=== PATIENT | female | born 1940 | race Caucasian/White ===

== ENCOUNTER 2017-01-08 20:45 | Inpatient (IN) | payer MEDICARE, BC ==
[~2017-01-08] VITALS: Ht 149.9 cm; Wt 66.1 kg
[2017-01-08] VITALS (9 sets, daily range): BP systolic 99–138; BP diastolic 48–89; BMI 38.7
--- NOTE | 2017-01-08 20:30 | NUR ---
PT RECIEVED. ASSESSMENT COMPLETE PER FLOW SHEET. VSS. FAMILY AT BEDSIDE GIVEN UPDATE. [facility] PAGED PRECIOUS CLAIRE CALLED BACK. T ORDER RECIEVED WILL ADM. T CONSULTS FOR GI, RESPIRATORY, CARDIOLOGY, AND RENAL RECIEVED ALL PAGED AND NOTIFIED PER ORDER. NEEDS MET.
[2017-01-08] MEDS ORDERED: FOLIC ACID0.8 MG PO (22:13)
[2017-01-08] MEDS ORDERED: BIOTIN5 MG PO (22:18)
[2017-01-08] MEDS ORDERED: VITAMIN D2000 UNIT PO (22:18)
[2017-01-08] MEDS ORDERED: ZYLOPRIM100 MG PO (22:19)
[2017-01-08] MEDS ORDERED: ELIQUIS2.5 MG PO (22:19)
[2017-01-08] MEDS ORDERED: LASIX40 MG PO ×2 (22:24→22:25)
[2017-01-08] MEDS ORDERED: POTASSIUM99 M1 PO (22:27)
[2017-01-08] MEDS ORDERED: BIDIL TABLET1 TAB (22:28)
[2017-01-08] MEDS ORDERED: ISOSORBIDE DINI20 MG PO (22:29)
[2017-01-08] MEDS ORDERED: PROTONIX20 MG PO (22:30)
[2017-01-08] MEDS ORDERED: ZANAFLEX2 M1 PO (22:31)
[2017-01-08] MEDS ORDERED: CELEXA40 MG PO (22:32)
[2017-01-08] MEDS ORDERED: PEPCID40 MG PO (22:32)
[2017-01-08] MEDS ORDERED: ELAVIL25 MG PO (22:34)
[2017-01-08] MEDS ORDERED: ASPIRIN81 MG PO (22:35)
[2017-01-08] MEDS ORDERED: LIPITOR10 MG PO (22:36)
[2017-01-08] MEDS ORDERED: BACTRIM 400-801 TAB PO (22:41)
[2017-01-08] MEDS ORDERED: HYDROCODON-ACE1 EAC7 PO (22:42)
[2017-01-08] MEDS ORDERED: NORCO 7.5/325 T1 TA1 PO (22:43)
[2017-01-08] MEDS ORDERED: KLONOPIN0.5 MG PO (22:43)
[2017-01-08 23:02] LABS: BASOPHILS 0.1 % (0-2); EOSINOPHILS 1.6 % (0-7); HEMATOCRIT 33.7 % (36.0-48.0); HEMOGLOBIN 10.8 g/dL (12-16); IMMATURE GRANULOCYTES 0.3 % (0-5); LYMPHOCYTES 5.1 % (15-50); MCH 32.2 pg (26.0-34.0); MCV 100.6 fL (80.0-100.0); MEAN PLATELET VOLUME 9.9 fL (7.4-10.4); MONOCYTES 4.1 % (2-11); NEUTROPHILS 88.8 % (40-80); PLATELET COUNT 112 10x3/uL (130-400); RBC 3.35 10x6/uL (4.00-5.40); RDW 17.2 % (11.5-14.5); WBC 7.1 10x3/uL (4.8-10.8)
[2017-01-08 23:41] LABS: ALKALINE PHOSPHATASE 80 U/L (46-116); ALT (SGPT) 587 U/L (10-68); BILIRUBIN - DIRECT 0.31 mg/dL (0.00-0.30); BILIRUBIN - INDIRECT 0.39 mg/dL (0.00-1.00); CALC OSMOLALITY 288 mosm/kg (275-300); CALCIUM 8.3 mg/dL (8.5-10.1); CARBON DIOXIDE 25.2 mmol/L (21.0-32.0); CHLORIDE - SERUM 103 mmol/L (98-107); CKMB 5.8 U/L (0.0-3.6); CREATINE KINASE 132 UL (21-215); CREATININE - SERUM 1.7 mg/dL (0.6-1.3); GLUCOSE 88 mg/dL (74-106); MAGNESIUM - SERUM 2.2 mg/dL (1.8-2.4); PHOSPHOROUS 3.6 mg/dL (2.5-4.9); POTASSIUM - SERUM 3.8 mmol/L (3.5-5.1); PROTEIN - SERUM 6.3 g/dL (6.4-8.2); SODIUM 141 mmol/L (136-145); UREA NITROGEN 37 mg/dL (7-18); eGFR NON AFRICAN AMERICAN 31 mL/min (90-120)
[2017-01-08 23:48] LABS: TROPONIN-I 0.077 ng/mL (0.000-0.060)
[2017-01-09] VITALS (24 sets, daily range): BP systolic 97–146; BP diastolic 52–110
--- NOTE | 2017-01-09 01:21 | NUR ---
NO NEW CHANGES. PT ANXIOUS CONFUSED REORIENTED REPOSISITION ON L SIDE FOR COMFORT DENIES FURTHER NEEDS. WILL CONTINUE TO MONITOR.
--- NOTE | 2017-01-09 03:29 | NUR ---
REASSESSMENT COMPLETE PER FLOW SHEET. VSS. NO NEW CHANGES. PT CONFUSED REORIENTED DENIES PAIN OR NEEDS. WILL CONTINUE TO MONITOR
[2017-01-09 06:07] LABS: BASOPHILS 0.1 % (0-2); EOSINOPHILS 1.6 % (0-7); HEMATOCRIT 31.9 % (36.0-48.0); HEMOGLOBIN 10.2 g/dL (12-16); IMMATURE GRANULOCYTES 0.3 % (0-5); LYMPHOCYTES 6.3 % (15-50); MCH 32.2 pg (26.0-34.0); MCV 100.6 fL (80.0-100.0); MEAN PLATELET VOLUME 10.3 fL (7.4-10.4); MONOCYTES 5.5 % (2-11); NEUTROPHILS 86.2 % (40-80); PLATELET COUNT 113 10x3/uL (130-400); RBC 3.17 10x6/uL (4.00-5.40); WBC 7.3 10x3/uL (4.8-10.8)
[2017-01-09 06:37] LABS: ANION GAP 14.9 mmol/L (8-16); BILIRUBIN - TOTAL 0.78 mg/dL (0.2-1.3); CALCIUM 7.8 mg/dL (8.5-10.1); CARBON DIOXIDE 26.6 mmol/L (21.0-32.0); CREATININE - SERUM 1.5 mg/dL (0.6-1.3); PHOSPHOROUS 3.4 mg/dL (2.5-4.9); POTASSIUM - SERUM 3.5 mmol/L (3.5-5.1); PROTEIN - SERUM 5.5 g/dL (6.4-8.2)
--- NOTE | 2017-01-09 07:00 | NUR ---
RECIEVED REPORT. CONT PLAN OF CARE. O2 VIA NC AT 6L WITH NO SOB NOTED. OT SAT 92% RESIDENT CONFUSED AND ORIENTED TO PERSON ONLY. IV TO LEFT ARM WITH ARM BOARD AND GAUZING. FC WITH CLEAR YELLOW URINE NOTED. BRUISING TO BUE AND BLE. ABD DISTENDED WITH HYPOACTIVE BOWEL SOUNDS X4. ASSESSMENT COMPLETED PER FLOW SHEET.
--- NOTE | 2017-01-09 07:10 | NUR ---
ORAL TEMP NOT READING. AXILARY TEMP READ 94.0. BEAR HUGGER APPLIED UNDER SHEET AND BLANKET AND ROOM TEMP INCREASED. FAMILY ARRIVED SHORTLY AFTER AND AWARE OF LOW TEMERATURE.
--- NOTE | 2017-01-09 09:00 | NUR ---
FAMILY AT BEDSIDE, JAGRUTI WATT TAUTH AND RODO SPOKE WITH FAMILY RE: POC, NO OTHER NEEDS A THIS TIME
[2017-01-09 09:11] LABS: AMYLASE - SERUM 34 U/L (25-115); LIPASE 87 U/L (73-393)
[2017-01-09 09:20] LABS: INR 1.65 (0.85-1.17); PROTIME 19.4 SECONDS (11.6-15.0)
--- NOTE | 2017-01-09 09:30 | NUR ---
AM MEDS GIVEN WITHOUT DIFFICULTY
--- NOTE | 2017-01-09 10:00 | NUR ---
ORAL TEMP READ 98.0. BEAR HUGGER TURNED OFF.
[2017-01-09 10:28] LABS: APPEARANCE HAZY (CLEAR); BACTERIA FEW /hpf (NONE SEEN); BILIRUBIN NEGATIVE (NEGATIVE); COLOR YELLOW (YELLOW); EPITHELIAL CELLS 0-5 /hpf (0-5); GLUCOSE NEGATIVE (NEGATIVE); KETONE NEGATIVE (NEGATIVE); LEUKOCYTE ESTERASE TRACE (NEGATIVE); MUCUS <1+ /lpf (NONE SEEN); NITRITE NEGATIVE (NEGATIVE); PROTEIN NEGATIVE (NEGATIVE); RED CELLS - URINE >50 /hpf (0-5); SPECIFIC GRAVITY 1.015 (1.005-1.020); UROBILINOGEN NORMAL (NORMAL); WHITE CELLS - URINE 0-5 /hpf (0-5)
[2017-01-09 10:33] LABS: CREATININE - URINE 45.8 mg/dL (30-125); POTASSIUM - URINE 38.2 MMOL/L (12.0-62.0)
--- NOTE | 2017-01-09 10:50 | NUR ---
ECHO COMPLETED AT BEDSIDE
--- NOTE | 2017-01-09 11:00 | NUR ---
PT STILL IN BED. NO OBVIOUS SIGNS AND SYMPTOMS OF DISTRESS/DISCOMFORT. LESS AGITATED. PREPARING TO GO TO CT.
--- NOTE | 2017-01-09 11:14 | NUR ---
TO RADIOLOGY FOR PENDING CT SCAN, AWAKE AND CONFUSED,
--- NOTE | 2017-01-09 13:00 | NUR ---
PT RESTLESS IN BED. CONFUSION NOTED. PT FOUND WITH LEGS OVER SIDE OF THE BED. REPOSITIONED AND MOVED TOWARDS THE HEAD OF THE BED.
--- NOTE | 2017-01-09 15:49 | CN ---
PATIENT NAME:ETHAN BUSH MEDICAL RECORD: [id number] : 40 LOCATION:[facility].2310 ADMIT DATE: 01/08/17 ACCOUNT: [id number] CONSULTING PHYSICIAN: ALEXANDER JONES MD REFERRING PHYSICIAN: FAITH LOPEZ MD DATE OF CONSULTATION: 01/09/2017 Cardiology Consultation DIAGNOSES: 1. Elevated troponin. 2. Atrial fibrillation, chronic. 3. Coronary artery disease, status post coronary bypass graft surgery 1-vessel, September of 2016. 4. Aortic valve replacement, September 29. 5. Mental status changes. 6. Recurrent pneumonia. 7. Esnna-vl-estklhn renal insufficiency. 8. Hyperlipidemia. 9. Hypertension. HISTORY OF PRESENT ILLNESS: Mrs. Bush presents primarily with mental status changes. She had a fall 2 days ago. She went to the Emergency Room. There was nothing broken. She was sent out to the Emergency Room. Her mental status decreased since then. She was admitted yesterday with significant mental status changes, this is improved overnight, most likely this is improved secondary to hydration. Most likely was decreased mental status due to dehydration due to decreased oral intake after her fall secondary to pain. She does have pain throughout her chest area and her abdominal area and the back of her head after her fall. Her troponin is mildly elevated, which can also go with the renal insufficiency and the dehydration. Her troponin is trending downward. Her EKG is with no acute ST-T abnormalities. She does have a history of coronary bypass graft surgery in conjunction with angina and an aortic valve replacement in September. She is not having any cardiac chest pain, only musculoskeletal chest pain. PHYSICAL EXAMINATION: GENERAL APPEARANCE: Well-nourished, well-developed, appears stated age. Level of distress, comfortable. PSYCHIATRIC: Mental status, alert, normal affect. Orientation, oriented to time, place and person. EYES: Lids and conjunctiva, noninjected. No discharge, no pallor. ENT: Lips, teeth, gums, normal dentition. Oropharynx, no cyanosis, no pallor. NECK: Carotid arteries, bilateral normal upstroke, no bruits, no thrills. JUGULAR VEINS: No jugular venous pressure or distention. CERVICAL LYMPH NODES: Nontender, nonenlarged. THYROID: Not enlarged. Nontender. No nodules. LUNGS: Respiratory effort, unlabored. CHEST: Normal curvature. No thoracic deformity. No chest wall tenderness. Percussion, resonant. Auscultation, clear. No wheezes, no rales, no rhonchi. CARDIOVASCULAR: Precordial exam, nondisplaced. No heaves or pericardial thrills. Rate and rhythm, regular. Heart sounds, normal S1, normal S2. No S3, no gallop, no rub. Systolic murmur, not heard. Diastolic murmur, not heard. EXTREMITIES: No cyanosis, no edema. Peripheral pulses, full and equal in all extremities, except as noted. No bruits appreciated. CONSULT REPORT [id number] ETHAN BUSH ABDOMEN: Soft, nondistended. Normal aorta. No bruit. Nontender. No masses. Liver, nontender, no hepatomegaly. Spleen, nontender, no splenomegaly. MUSCULOSKELETAL: No joint tenderness. No joint swelling. No erythema. NEUROLOGICAL: Normal gait, normal strength, normal tone. SKIN: Warm and dry. REVIEW OF SYSTEMS: The patient reports easy bruising but reports no swollen glands. The patient reports no fever, no night sweats, no significant weight gain, no significant weight loss. No significant exercise tolerance. The patient reports no dry eyes, no irritation, no vision change. Patient reports no difficulty hearing and no ear pain. Patient reports no frequent nose bleeds or nose and sinus problems. Patient reports on arm pain on exertion. No shortness of breath while lying down. No history of heart murmur. Patient reports no cough, no wheezing or coughing up blood. Patient reports no abdominal pain, no vomiting. Normal appetite. No diarrhea and not vomiting blood. No nausea and no constipation. Patient reports no incontinence. No difficulty urinating. No hematuria. No increased frequency. Patient reports no muscle aches. No weakness, no arthralgias, no back pain. No swelling of the extremities. Patient reports no abnormal mole, no jaundice, no rashes. Reports no loss of consciousness. No weakness and no numbness. No seizures, dizziness, or headaches. The patient reports no depression, no sleep disturbance, feeling safe in a relationship and no alcohol abuse. Patient reports on fatigue. Reports no runny nose or sinus pressure. No itching, no hives, and no frequent sneezing. OVERALL IMPRESSION: At this time, I do not think that this is an acute ischemic cardiac event. I think that the troponin is elevated secondary to the dehydration and renal insufficiency. We will get an echocardiogram to assess her overall LV function, but most likely cardiac catheterization or invasive workup will not be needed. TRANSINT:[id number] Voice Confirmation ID: [id number] DOCUMENT ID: [id number] ALEXANDER JONES MD at 1549 CC: [id number] DICTATION DATE: 01/09/17 0931 SAWYER HELPER: 01/09/17 1024 ADM IN [place] [id number] [place] [id number]
--- NOTE | 2017-01-09 17:26 | NUR ---
IN BED RESTLESS WITH LEGS OVER THE SIDE OF THE BED. CONFUSION NOTED. REPOSITIONED IN BED.
--- NOTE | 2017-01-09 19:30 | NUR ---
PT MOVED UP IN BED. REDRESSED IV SITE. IV ON R UPPER ARM, PATENT. FRESH LINEN CHANGE. SHIFT ASSESSMENT COMPLETED. PT IS STILL CONFUSED AND HALLUCINATING. REORIENTED PT. OXIMIZER ON AT 12 L/MIN. S1S2 AUDIBLE. CRACKLES HEARD IN ALL LOBES OF THE LUNGS. BS ACTIVE X4. RAO, URINE DARK VIRAJ COLOR AND CONCENTRATED. SCD'S REMOVED AND SKIN ASSESSED, WNL. REAPPLIED SCD'S. PROVIDED PT WITH SLIPPER SOCKS. CALL LIGHT IN REACH AND PT IS IN SIGHT OF THE NURSE'S STATION. WILL CONTINUE TO MONITOR.
--- NOTE | 2017-01-09 21:15 | NUR ---
TALKED TO PT'S DAUGHTER ON THE PHONE. INFORMED HER OF HER MOTHER'S CONFUSION. PT IN BED, MOVED HER UP FOR COMFORT AND REPOSITIONED HER PILLOWS. CALL LIGHT IN REACH. PT IN VIEW OF THE NURSE'S STATION.
--- NOTE | 2017-01-09 23:30 | NUR ---
REPOSITIONED PT FOR COMFORT. REORIENTED HER, BUT SHE IS STILL VERY CONFUSED AT THIS TIME. PT IN VIEW OF THE NURSE'S STATION. CALL LIGHT IN REACH. BED IN LOWEST POSITION. WILL CONTINUE TO MONITOR.
[2017-01-10] VITALS (23 sets, daily range): BP systolic 98–130; BP diastolic 59–100; Ht 149.9 cm; Wt 66.1 kg
--- NOTE | 2017-01-10 01:14 | NUR ---
REPOSITIONED ON HER L SIDE. PT SLEEPING. OXIMIZER IN AT 12 L. WILL CONTINUE TO MONITOR.
--- NOTE | 2017-01-10 02:50 | NUR ---
PT REPOSITONED FOR COMFORT ON HER R SIDE. REORIENTED HER AND SHE SAID SHE WANTED TO SLEEP. MONITORED HER FOR A FEW MINUTES TO THE SIDE AND SHE DRIFTED OFF TO SLEEP. BED IN LOWEST POSITION. CALL LIGHT IN REACH. WILL CONTINUE TO MONITOR HER FROM THE NURSE'S STATION.
[2017-01-10 04:17] LABS: BASOPHILS 0.2 % (0-2); EOSINOPHILS 0 % (0-7); HEMATOCRIT 31.3 % (36.0-48.0); HEMOGLOBIN 9.8 g/dL (12-16); IMMATURE GRANULOCYTES 0.3 % (0-5); LYMPHOCYTES 6.1 % (15-50); MCH 31.5 pg (26.0-34.0); MCHC 31.3 g/dL (31.0-37.0); MCV 100.6 fL (80.0-100.0); MEAN PLATELET VOLUME 10.6 fL (7.4-10.4); MONOCYTES 2.6 % (2-11); NEUTROPHILS 90.8 % (40-80); PLATELET COUNT 114 10x3/uL (130-400); RBC 3.11 10x6/uL (4.00-5.40); RDW 16.8 % (11.5-14.5); WBC 6.4 10x3/uL (4.8-10.8)
[2017-01-10 04:42] LABS: ALBUMIN 2.9 g/dL (3.4-5.0); ANION GAP 14.7 mmol/L (8-16); BILIRUBIN - DIRECT 0.38 mg/dL (0.00-0.30); BILIRUBIN - INDIRECT 0.72 mg/dL (0.00-1.00); BILIRUBIN - TOTAL 1.1 mg/dL (0.2-1.3); CALCIUM 8.3 mg/dL (8.5-10.1); CARBON DIOXIDE 25.7 mmol/L (21.0-32.0); CREATININE - SERUM 1.4 mg/dL (0.6-1.3); POTASSIUM - SERUM 3.4 mmol/L (3.5-5.1); PROTEIN - SERUM 6.2 g/dL (6.4-8.2)
[2017-01-10 04:48] LABS: % SATURATION 11 % (15-55); IRON 28 ug/dl (35-150); TOTAL IRON BIND CAPACITY 234 ug/dl (260-445); UNSAT IRON BIND CAPACITY 206 ug/dl (150-375)
--- NOTE | 2017-01-10 05:15 | NUR ---
PT RESTING PEACEFULLY. CALL LIGHT IN REACH. WILL CONTINUE TO MONITOR.
--- NOTE | 2017-01-10 07:16 | NUR ---
REPORT RECD PT CARE ASSUMED. PT LAYING IN BED, CONFUSED TO PERSON PLACE TIME AND SITUATION. PT HAS DIFFICULTY FOLLOWING COMMANDS. PT HAS OXIMIZER AT 12L. S1S2 NOTED, SR PER CM. RAO/SCDS IN PLACE. PPP. SEE SHIFT ASSESSMENT FOR FURTHER DETAILS. VSS.
--- NOTE | 2017-01-10 09:00 | NUR ---
PT FAMILY AT BEDSIDE FOR VISITATION. PT IS SITTING UP IN BED, FEEDING WITH ASSISTANCE FROM DAUGHTER. PT TOLERATING REG DIET WELL. PT IS NOW ORIENTED TO PERSON AND DATE. PT PROVIDED WITH UPDATE.
--- NOTE | 2017-01-10 10:00 | NUR ---
PT REPOSITIONED AND PULLED UP IN BED. PT RESTING COMFORTABLY AT THIS TIME, DENIES PAIN.
--- NOTE | 2017-01-10 11:31 | EC ---
PATIENT:ETHAN BUSH DATE OF SERVICE: 01/08/17 SEX: F MEDICAL RECORD: [id number] DATE OF : 40 LOCATION:[facility] AGE OF PATIENT: 76 ADMISSION DATE: 01/08/17 REFERRING PHYSICIAN: INTERPRETING PHYSICIAN: ALEXANDER NOE MD ECHOCARDIOGRAM REPORT ECHO CHARGES 4 ECHO COMPLETE CLINICAL DIAGNOSIS: ELEVATED TROPONIN/RECENT CABG/VALVE REPLACEMENT ECHOCARDIOGRAPHIC MEASUREMENTS (adult normal given) AC root (d.<3.7cm) 2.7 LV Septum d (<1.2 cm> 1.0 Valve Excursion 1.3 LV Septum (systole) 1.2 Left Atria (s.<4.0cm> 3.5 LVPW d(<1.2cm) 1.2 RV (d.<2.3cm) 4.1 LVPW (sytole) 1.4 LV diastole(<5.6CM) 4.0 MV E-F(>70mm/sec) LV systole 2.5 LVOT Diameter 1.8 MV exc.(>10mm) Est.ejection fraction (50-75%) Pericardial Effusion N DOPPLER: LVIT A 85.0 E 8.67 LA RVSP 51 LVOT 108 AOP1/2T Asc. Ao 147 RVOT 66 RA PA 137 AV Gradient Peak 8.69 AV Mean 4.46 AV Area 1.5 MV Gradient Peak 7.55 MV Mean 2.32 MV Area COMMENTS: Construction Driller: Juan F EPPS Machinist Automotive:Madonna Noe TAPE# PACS DATE OF SERVICE: 01/09/2017 Echocardiogram FINDINGS: 1. Left ventricular chamber size is within normal limits. Left ventricular systolic function is normal. Overall ejection fraction estimated at 60%. 2. Left atrium is within normal limits at 3.5 cm. Right atrium and right ventricular chamber sizes are mildly dilated. 3. Valvular structures: Aortic valve is replaced with a tissue prosthesis with ECHOCARDIOGRAM REPORT [id number] ETHAN BUSH normal structure and function in this position. The remaining valvular structures have normal structure and motion. 4. Doppler interrogation reveals mild mitral regurgitation, moderate tricuspid regurgitation, no other valvular insufficiency or stenosis. Pulmonary systolic pressure is elevated estimated at 51 mmHg. 5. No evidence of pericardial effusion or left ventricular thrombus. TRANSINT:[id number] Voice Confirmation ID: [id number] DOCUMENT ID: [id number] ALEXANDER NOE MD at 1131 CC: [id number] DICTATION DATE: 01/09/17 1238 TELESCOPE REPAIRER: 01/09/17 1617 ADM IN [place] [id number] [place] [address]
--- NOTE | 2017-01-10 11:33 | CN ---
PATIENT NAME:ETHAN BUSH MEDICAL RECORD: [id number] : 40 LOCATION:[id number] ADMIT DATE: 01/08/17 ACCOUNT: [id number] CONSULTING PHYSICIAN: SARAH DOBSON MD REFERRING PHYSICIAN: RADHA LOPEZ MD DATE OF CONSULTATION: 01/09/2017 Gastrointestinal Consultation REFERRING PHYSICIAN: Radha Lopez MD RAIL GRINDER: Dr. Kennedy. HISTORY OF PRESENT ILLNESS: The patient is a 76-year-old white female with history of cerebrovascular disease status post CVA, coronary artery disease and valvular heart disease status post PTCA with stent placement as well as reported CABG and recent valve replacement, who was basically admitted with marked confusion as well as renal insufficiency and acute MD and mildly elevated transaminases. I was asked to see the patient in this regard. Apparently, she has a remote history of peptic ulcer disease on chart review. She has no past history of any liver disease. However, on admission, her ALT was about 500 and AST was about 200. ____ the patient is very confused and cannot give any history. PAST MEDICAL HISTORY: As above. ALLERGIES: PENICILLIN, CODEINE AND ATIVAN. HOME MEDICATIONS: Include folic acid, vitamin D3, biotin, allopurinol, Eliquis, Lasix, potassium, isosorbide, Protonix, Zanaflex, Celexa, Pepcid, Elavil, aspirin, Lipitor, Bactrim, Dermott, clonazepam. FAMILY HISTORY: Negative for GI disease. SOCIAL HISTORY: The patient is a former smoker. She denies alcohol use. REVIEW OF SYSTEMS: Basically unobtainable. PHYSICAL EXAMINATION: GENERAL: Reveals an elderly, somewhat frail white female who is confused, but in no acute distress. VITAL SIGNS: Stable. She is afebrile. CHEST: Clear. HEART: Regular rate and rhythm. ABDOMEN: Soft and nontender. EXTREMITIES: No edema. LABORATORY DATA: Reveals a white count of 7000, hematocrit 31, MCV of 100, platelet count 113,000 with a left shift. Electrolytes normal. BUN 35, creatinine 1.5. Total bilirubin 0.8, AST 215, ALT 539, alkaline phosphatase 77. ProBNP is 10,700. Albumin is 3. Amylase and lipase are normal. TSH is a little high at 7. UA reveals 2+ rbc's, but otherwise negative. INR is 1.65. CT of the chest reveals emphysematous changes in both upper lobes. Renal ultrasound was basically negative for hydronephrosis. Chest x-ray reveals some CONSULT REPORT [id number] ETHAN BUSH interstitial edema. IMPRESSION: Mildly elevated transaminases in the setting of an acute myocardial infarction, recent cardiac surgery and confusion of unclear etiology, rule out shock liver, medications (Lipitor, Bactrim). I doubt underlying liver disease at this time. RECOMMENDATION: 1. Obviously, hold her Lipitor ____. 2. Hold her sulfa drug. 3. Check routine "liver lab" and obtain ultrasound of the liver and gallbladder. 4. Continue supportive care. TRANSINT:[id number] Voice Confirmation ID: [id number] DOCUMENT ID: [id number] SARAH DOBSON MD at 1133 CC: [id number] DICTATION DATE: 01/09/171903 CLEANER AND PRESSER: 01/10/17 0229 ADM IN [facility] [address] [place] [id number]
--- NOTE | 2017-01-10 11:42 | CN ---
PATIENT NAME:ETHAN BUSH MEDICAL RECORD: [id number] : 40 LOCATION:[facility].2310 ADMIT DATE: 01/08/17 ACCOUNT: [id number] CONSULTING PHYSICIAN: MYRIAM KOEHLER MD REFERRING PHYSICIAN: RADHA LOPEZ MD DATE OF CONSULTATION: 01/09/2017 CONSULT REQUESTING PHYSICIAN: Dr. Radha Lopez. REASON FOR CONSULTATION: Hoylx-mi-fntbsud hypoxic respiratory failure, mental status changes. HISTORY OF PRESENT ILLNESS: Ms. Bush is a 76-year-old female who has a history of chronic obstructive pulmonary disease, congestive heart failure. The patient has a CABG in September and since then she has had pneumonia times 2. Yesterday, the patient was very confused, very lethargic and the patient was brought into the ER. On evaluation, she was found that she is in pulmonary edema and she was hypoxic. She was put on 6 liters nasal cannula oxygen. Now, the history was mainly taken by talking to the patient's and reviewing her notes. REVIEW OF SYSTEMS: Mainly in the history of present illness. PAST MEDICAL HISTORY: 1. Chronic obstructive pulmonary disease. 2. Chronic hypoxic respiratory failure. 3. Congestive heart failure, possible systolic dysfunction. 4. CABG. 5. Pneumonia times 2 since September. 6. Gastroesophageal reflux disease. PAST SURGICAL HISTORY: The CABG in September 2016. She is also having a valve replacement at the same time. ALLERGIES: SHE IS ALLERGIC TO CODEINE, LORAZEPAM AND QUESTIONABLE PENICILLIN. PRESENT MEDICATIONS: Med[employer]ch was reviewed. PERSONAL AND SOCIAL HISTORY: The patient is . She lives with her . She is an ex-smoker. She is a nondrinker. FAMILY HISTORY: Noncontributory. PHYSICAL EXAMINATION: GENERAL: Now, the patient is lying comfortably in bed. She is not in acute distress. VITAL SIGNS: The blood pressure is 135/73, pulse is 71, respirations 22, temperature was 98.4 earlier her temperature was 94, SPO2 is 96% on 6 liters nasal cannula. HEENT: Conjunctivae are pink. Sclerae nonicteric. NECK: Supple. There is elevated JVD. CHEST: There are bilateral crackles. No wheezing. HEART: Rhythm regular, normal sound. Grade II/ systolic murmur. ABDOMEN: Abdomen is soft. Bowel sounds present. No hepatosplenomegaly. RECTAL: Deferred. CONSULT REPORT [id number] ETHAN BUSH EXTREMITIES: No cyanosis, no clubbing. There is no pedal edema. SKIN: The skin is warm, normal turgor. CENTRAL NERVOUS SYSTEM: The patient is awake and alert, but she is very confused. LABORATORY DATA: CBC: The WBC is 7.3, hemoglobin 10.2, hematocrit 31.9, the platelet count is 113. Chemistry: Sodium was 142, potassium 3.5, chloride 104, bicarbonate 26.6, BUN is 35, creatinine is 1.5 earlier it was 1.7. Calcium is 7.8, magnesium is 2, AST is 245, ALT is 587. Troponin is 0.07. IMAGING: Chest radiograph, there are bilateral increased interstitial marking consistent with pulmonary edema. IMPRESSION: 1. Immno-zr-hocjzhf hypoxic respiratory failure, which is multifactorial: A. Pulmonary edema. B. 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 2. Possible pneumonia consistent with hospital-acquired pneumonia. 3. Acute exacerbation of chronic obstructive pulmonary disease. 4. Congestive heart failure consistent with chronic systolic dysfunction. 5. Acute renal failure. 6. Acute mental status changes, possible metabolic encephalopathy and possible sepsis. 7. Elevated liver function tests. Possible hepatitis, possible secondary to liver congestion. 8. Hypothermia. RECOMMENDATION: 1. We will start her on Levaquin and cefepime to cover for Gram-negative lauro and hospital-acquired pneumonia. 2. Albuterol/ipratropium nebulizer. 3. Brovana and budesonide nebulizer. 4. Hep-Lock decrease IV fluid to KVO. 5. Lasix. 6. Check the CT scan of the chest. Check the proBNP. 7. Cardiac echo, Dr. Noe has already been consulted. 8. Follow up on the blood culture. 9. Check the TSH, check the ABG. Dr. Lopez, thank you for involving me in the care of Ms. Bush. The critical care time is 1 hour. TRANSINT:[id number] Voice Confirmation ID: [id number] DOCUMENT ID: [id number] MYRIAM KOEHLER MD at 1142 CC: RADHA LOPEZ MD [id number] DICTATION DATE: 01/09/17 1010 FRAME STRAIGHTENER: 01/09/17 1131 ADM IN [place] [id number] [place] [address]
--- NOTE | 2017-01-10 12:00 | NUR ---
PT SITTING UP IN BED EATING LUNCH, PT FAMILY AT BEDSIDE FOR VISITATION. VSS.
--- NOTE | 2017-01-10 14:57 | NUR ---
HAND OFF REPORT GIVEN TO HORACE HARRISON
--- NOTE | 2017-01-10 17:15 | NUR ---
DINNER TRAY TO BEDSIDE, ASSIST WITH SET UP AND EATING, BITES AND SIPS ONLY, TRAY FROM BEDSIDE, REPOSITIONED UP IN BED VOICES NO OTHER NEEDS AT THIS TIME
--- NOTE | 2017-01-10 18:00 | NUR ---
SOLUMEDRAL 40 MG IVP AND, CEFEPIME 1 GM IVPB, INITITATED PER OCT AND ORDERS, NO VISITORS AT THIS TIME
--- NOTE | 2017-01-10 19:28 | NUR ---
REPORT RECIEVED. ASSESSMENT COMPLET EPER FLOW SHEET. VSS. REFER FOR FINDINGS. RESTING COMFORTABLY. WILL CONTINUE TO MONITOR.
--- NOTE | 2017-01-10 20:18 | NUR ---
FAMILY CALLED GIVEN UPDATE. NO NEW CHANGES. WILL CONTINUE TO MONITOR.
--- NOTE | 2017-01-10 21:29 | NUR ---
FAMILY GIVEN UPDATE VIA T. NO NEW CHANGES. 2100 MEDS ADM WITHOUT DIFFICULTY. VSS. WILL CONTINUE TO MONITOR.
--- NOTE | 2017-01-10 23:28 | NUR ---
REASSESSMENT COMPLETE PER FLOW SHEET. NO NEW CHANGES. VSS. WILL CNTINUE TO MONITOR.
[2017-01-11] VITALS (14 sets, daily range): BP systolic 94–126; BP diastolic 54–85
--- NOTE | 2017-01-11 01:14 | NUR ---
PT SLEEPING COMFORTABLY .VSS. NO NEW CHANGES. WILL CONTINUE TO MONITOR.
--- NOTE | 2017-01-11 03:24 | NUR ---
REASSESSMENT COMPLETEP ER FLOW SHEET. VSS. NO NEW CHANGES. WILL CONTINUE TO MONITOR.
[2017-01-11 04:33] LABS: BASOPHILS 0 % (0-2); EOSINOPHILS 0.1 % (0-7); HEMATOCRIT 31.3 % (36.0-48.0); HEMOGLOBIN 9.8 g/dL (12-16); IMMATURE GRANULOCYTES 0.2 % (0-5); LYMPHOCYTES 6.3 % (15-50); MCH 31.5 pg (26.0-34.0); MCHC 31.3 g/dL (31.0-37.0); MCV 100.6 fL (80.0-100.0); MEAN PLATELET VOLUME 10.6 fL (7.4-10.4); NEUTROPHILS 90.4 % (40-80); RBC 3.11 10x6/uL (4.00-5.40)
[2017-01-11 04:34] LABS: PLATELET COUNT 137 10x3/uL (130-400); WBC 10.1 10x3/uL (4.8-10.8)
[2017-01-11 04:53] LABS: ALBUMIN 2.8 g/dL (3.4-5.0); ANION GAP 9.1 mmol/L (8-16); BILIRUBIN - TOTAL 1.26 mg/dL (0.2-1.3); CALCIUM 8.3 mg/dL (8.5-10.1); CARBON DIOXIDE 31.2 mmol/L (21.0-32.0); CREATININE - SERUM 1.5 mg/dL (0.6-1.3); MAGNESIUM - SERUM 1.9 mg/dL (1.8-2.4); POTASSIUM - SERUM 3.3 mmol/L (3.5-5.1); PROTEIN - SERUM 5.9 g/dL (6.4-8.2)
[2017-01-11 07:25] LABS: HEPATITIS C ANTIBODY 0.2 (0.0-0.9)
--- NOTE | 2017-01-11 09:39 | NUR ---
0800 AM ASSESMENT COMPLETE SEE FLOW SHEET FOR FINDINGS.. PT IS SLEEPING EARLY AND AROUSES WHEN BREAKFAST IS SERVED... WITHOUT C/O AT THIS DEDE.. 0900 FAMILY AT THE BEDSIDE AND UPDATE IS GIVEN. FAITH CRAIG FOR GI IN TO SEE PT AND SPOKE WITH PT AND FAMILY..
--- NOTE | 2017-01-11 09:47 | NUR ---
NUTRITION MONITORING & EVAL CHART REVIEWED. NURSING REPORTS PT WITH ~50% INTAKE BREAKFAST. WILL CONTINUE TO PROVIDE REG DIET, MONITOR PO INTAKE. RD FOLLOWING
[2017-01-11 10:20] LABS: ANA REFLEX - DIRECT Negative (Negative)
[2017-01-11 10:20] LABS: ALPHA FETOPROTEIN -(TUMOR MRK) 1.8 ng/mL (0.0-8.3); ANA REFLEX - DIRECT Negative (Negative)
--- NOTE | 2017-01-11 10:46 | NUR ---
PATIENT IS ON A 12 LITER OXYMIZER. PATIENT IS NOT ABLE TO CONVERSE AT THIS TIME DUE TO SOB. I HAVE NOT SEEN ANY FAMILY VISIT THAT I CAN INTERVIEW AT THIS TIME. CM TO FOLLOW.
--- NOTE | 2017-01-11 15:15 | NUR ---
1100 DR LOPEZ IN TO SEE PT...UPDATE IS GIVEN.. 1130 DR KOEHLER IN UNIT SPEAKING WITH DR LOPEZ RE PT.. 1145 OK FOR TRANSFER TO FLOOR.. 1200 FAMILY IN TO SEE PT .. UPDATE GIVEN RE TRANSFER ORDERS.. FAMILY BROUGHT IN PT LUNCH FROM OUTSIDE .. TODAY IS PT BIRTHDAY 1300 COMLETE BATH AND LINEN CHANGE DONE WITH [facility] 1400 PT IS SLEEPING AT THIS ITME.. REPORT CALLED TO FLOOR ROOM 2112..
--- NOTE | 2017-01-11 15:16 | NUR ---
Is the patient Alert and Oriented? Yes 0 * How many steps to enter\exit or inside your home? 2/RAIL 0 * PCP DR. ZEKE MERRILL IN [place] 0 * Pharmacy [facility] IN [facility] 0 * Preadmission Environment Home with Family 0 * ADLs Independent 0 * Equipment Bedside Commode Nebulizer Oxygen Rolling Walker 0 * Other Equipment PATIENT O2 AND NEBULIZER PROVIDED BY [facility] IN [place], [place] 0 * List name and contact numbers for known caregivers / representatives who currently or will assist patient after discharge: SPOUSE ANTONINO [phone] 0 * Community resources currently utilized None 0 * Additional services required to return to the preadmission environment? No 0 * Can the patient safely return to the preadmission environment? Yes 0 * Has this patient been hospitalized within the prior 30 days at any hospital? No PATIENT IS AWAKE AND ALERT. SHE STATES SHE LIVES AT HOME WITH HE , ANTONINO. HE OR HER DAUGHTER, TRUDY, WILL BE AVAILABLE TO DRIVE HER HOME AT DISCHARGE. PATIENT STATES HER PCP IS DR. ZEKE MERRILL IN [place]. SHE GETS HER MEDS FROM [facility] IN [place]. PATIENT STATES SHE IS ON O2 24-7 AND HAS A NEBULIZER FOR BREATHING TREATMENTS PROVIDED BY [facility] IN [place]. PATIENT STATES SHE HAD HOME HEALTH IN THE PAST FROM [facility]. PATIENT STATES THERE ARE 2 STEPS TO ENTER HER HOME WITH A RAIL. PATIENT STATES SHE WAS INDEPENDENT IN HER ADL'S PRIOR TO COMING TO THE [facility]. PATIENT MAY BENEFIT FROM HOME HEALTH AT DISCHARGE. CM TO FOLLOW.
--- NOTE | 2017-01-11 16:54 | NUR ---
RECIVED TO ROOM FROM ICU. PER BED
--- NOTE | 2017-01-11 17:54 | NUR ---
WITHOUT CHANGES OR DISTRESS NOTED AT THIS TIME. DENIES NEEDS.
--- NOTE | 2017-01-11 20:21 | NUR ---
PT AWAKE, ALERT, ORIENTED, LYING IN BED, OXYMIZER ON, REQUESTING PAIN MEDICATION FOR CHRONIC BACK PAIN. PT CANNOT RECALL EXACTLY WHAT IT IS. PTS DAUGHTER CALLED TO GET REPORT ON PTS CONDITION SINCE BEING TRANSFERRED FROM ICU, AND ALSO STATED THAT PT SUFFERS FROM CHRONIC BACK PAIN AND TAKES PRN NORCO 5-325 AT HOME. I SPOKE WITH PRECIOUS CLAIRE, HOUSE SUPERINTENDENT FOR [employer]. SHE STATED THAT DUE TO PTS INCREASED LFT'S, PT IS UNABLE TO RECEIVE ANY KIND OF TYLENOL OR IBUPROFEN AT THIS TIME, BUT CAN HAVE MELATONIN 3MG PRN HS. WILL CONTINUE TO MONITOR PT CLOSELY. BED LOW, CALL LIGHT IN REACH, SIDE RAILS X 2, HOB 25 DEGREES.
--- NOTE | 2017-01-11 22:49 | NUR ---
DURING PTS 20:00 V/S, PT DEMONSTRATED AN O2 SAT OF 78-80% ON 4LPM OXYMIZER. PT WAS REPOSITIONED, ASKED TO COUGH, DEEP BREATH, WITHOUT ANY CHANGE IN O2. PTS HANDS ARE COLD, SO THEY WERE WARMED BY [employer]ARDEN BEFORE RECHECKING ANOTHER O2 SAT. WITHOUT ANY IMPROVEMENT, RT WAS CALLED, NABOR CAME, AND INCREASED PTS O2 TO 11LPM STILL VIA OXYMIZER. PT REMAINED IN NO ACUTE DISTRESS. CONTINUE TO MONITOR CLOSELY. BED LOW, CALL LIGHT IN REACH, SIDE RAILS X 2, HOB 20 DEGREES.
[2017-01-12] VITALS: BP 112/54
--- NOTE | 2017-01-12 02:31 | NUR ---
PT LYING IN BED, EYES CLOSED, RESPIRATIONS EVEN AND UNLABORED. PT EASILY ROUSABLE TO VERBAL STIMULI. PT DENIES ANY NEEDS. CONTINUE TO MONITOR CLOSELY. BED LOW, CALL LIGHT IN REACH, SIDE RAILS X 2, HOB 15 DEGREES.
[2017-01-12 04:00] VITALS: BP 113/59
[2017-01-12 04:45] LABS: BASOPHILS 0.1 % (0-2); EOSINOPHILS 0 % (0-7); HEMATOCRIT 31.2 % (36.0-48.0); HEMOGLOBIN 9.8 g/dL (12-16); IMMATURE GRANULOCYTES 0.9 % (0-5); MCH 31.5 pg (26.0-34.0); MCHC 31.4 g/dL (31.0-37.0); MCV 100.3 fL (80.0-100.0); MEAN PLATELET VOLUME 10.4 fL (7.4-10.4); MONOCYTES 2.1 % (2-11); NEUTROPHILS 89.9 % (40-80); PLATELET COUNT 130 10x3/uL (130-400); RBC 3.11 10x6/uL (4.00-5.40); RDW 17.5 % (11.5-14.5)
[2017-01-12 04:55] LABS: ALBUMIN 2.8 g/dL (3.4-5.0); BILIRUBIN - TOTAL 1.3 mg/dL (0.2-1.3); CALCIUM 8.8 mg/dL (8.5-10.1); CARBON DIOXIDE 30.3 mmol/L (21.0-32.0); CREATININE - SERUM 1.5 mg/dL (0.6-1.3); MAGNESIUM - SERUM 1.9 mg/dL (1.8-2.4); PHOSPHOROUS 2.8 mg/dL (2.5-4.9); PROTEIN - SERUM 5.9 g/dL (6.4-8.2)
[2017-01-12 04:56] LABS: ANION GAP 10.9 mmol/L (8-16); POTASSIUM - SERUM 4.2 mmol/L (3.5-5.1)
--- NOTE | 2017-01-12 07:40 | NUR ---
ASSESSMENT DONE. DENIES NEEDS.
[2017-01-12 07:56] VITALS: BP 112/54
--- NOTE | 2017-01-12 09:25 | NUR ---
RESP UL ON OXIMIZER. REPOSITIONED IN BED FOR COMFORT. WILL CONT. PLAN OF CARE.
[2017-01-12 12:44] VITALS: BP 102/42
--- NOTE | 2017-01-12 13:04 | NUR ---
Nutrition follow-up: RDN visited with pt during meal rounds. RDN helped pt fill out todays menus and provided pt with extra juice and chocolate Ensure. Diet: Regular as tolerated PO intake ~65% average of last 5 meals Wt: 130# Pt with fair to good po intake at this time RDN following.
[2017-01-12 14:21] LABS: SMOOTH MUSCLE ABS (ACTIN) 10 Units (0-19)
[2017-01-12 16:43] VITALS: BP 110/47
--- NOTE | 2017-01-12 16:47 | NUR ---
WITHOUT CHAGES OR DISTRESS NOTED AT THIS TIME. DENIES NEEDS.
[2017-01-12 19:00] VITALS: BP 105/46
--- NOTE | 2017-01-12 20:30 | NUR ---
PT AWAKE, ALERT, ORIENTED, DENIES ANY NEEDS. CONTINUE TO MONITOR CLOSELY. BED LOW, CALL LIGHT IN REACH, SIDE RAILS X 2, HOB 15 DEGREES.
[2017-01-13 00:08] VITALS: BP 110/56
--- NOTE | 2017-01-13 01:25 | NUR ---
PT AWAKE, ALERT, ORIENTED, DENIED ANY NEEDS, JUST WISHING SHE COULD SLEEP. CONTINUE TO MONITOR CLOSELY. BED LOW, CALL LIGHT IN REACH, SIDE RAILS X 2, HOB 10 DEGREES.
[2017-01-13 04:00] VITALS: BP 104/54
[2017-01-13 05:37] LABS: BASOPHILS 0.2 % (0-2); EOSINOPHILS 0.4 % (0-7); HEMOGLOBIN 11.1 g/dL (12-16); IMMATURE GRANULOCYTES 1.7 % (0-5); LYMPHOCYTES 9.7 % (15-50); MCH 33.2 pg (26.0-34.0); MCHC 32.6 g/dL (31.0-37.0); MCV 101.8 fL (80.0-100.0); MEAN PLATELET VOLUME 10.6 fL (7.4-10.4); MONOCYTES 2.9 % (2-11); NEUTROPHILS 85.1 % (40-80); PLATELET COUNT 141 10x3/uL (130-400); RBC 3.34 10x6/uL (4.00-5.40); RDW 17.4 % (11.5-14.5); WBC 10.6 10x3/uL (4.8-10.8)
[2017-01-13 06:06] LABS: ALBUMIN 2.8 g/dL (3.4-5.0); ANION GAP 12.9 mmol/L (8-16); BILIRUBIN - TOTAL 1.28 mg/dL (0.2-1.3); CARBON DIOXIDE 31.6 mmol/L (21.0-32.0); CREATININE - SERUM 1.5 mg/dL (0.6-1.3); MAGNESIUM - SERUM 1.7 mg/dL (1.8-2.4); POTASSIUM - SERUM 4.5 mmol/L (3.5-5.1)
--- NOTE | 2017-01-13 07:15 | NUR ---
RECEIVED REPORT. ASSUMED CARE OF PATIENT. CALL LIGHT WITHIN REACH. PATIENT REPORTS VOMITING X 1 LAST NIGHT AND STILL HAVE SLIGHT NAUSEA THIS AM. CALL LIGHT WITHIN REACH. DENIES NEEDS. NO DISTRESS.
[2017-01-13 08:59] VITALS: BP 123/57
--- NOTE | 2017-01-13 11:44 | NUR ---
iv access dcd to rla with 22 ga iv cath intact resited to lac with 22 ga iv cath x1 stick using aseptic technique pt tolerated well
[2017-01-13 12:40] VITALS: BP 120/54
[2017-01-13 16:24] VITALS: BP 123/59
--- NOTE | 2017-01-13 16:52 | NUR ---
RESTING IN BED WITH EYES OPEN. CONSUMING PM MEAL AT THIS TIME. CALL LIGHT WITHIN REACH. NO DISTRESS.
[2017-01-13 20:00] VITALS: BP 128/71
--- NOTE | 2017-01-13 20:12 | NUR ---
INITIAL ROUNDS COMPLETEDA T 191 HRSW. PT DENIED ANY DISCOMFORT. ASSESSMETN VIDYA T 1934 HRS. VSS. O2 12L OXIMIZER. IV TO LAC SL. LUNGS DIMINISHED IN BASES BILAT. ABD DISTENED WITH ACTIVE BS NOTED. RAO DRAINING YELLOW URINE. NUMEROUS BRUISES NOTED TO BILAT ARMS AND LEGS. BED ALRM ON. ENCOURAGED PT TO SPLINT WIT H PILLOW AND TAKE DEVERAL DEEP BREATHES. WILL CONTINUE TO MONITOR. SR UP X2, CALL LIGHT WITHIN REACH.
--- NOTE | 2017-01-13 22:07 | NUR ---
PM MEDS GIVNE PER ORDERS. PT CURRENTLY RESTING WITH EYES CLOSED. RESP EVEN AND REGULAR. SR UP X2, CALL LIGHT WITHIN REACH.
--- NOTE | 2017-01-14 01:07 | NUR ---
PT RESTING WITH EYES CLOSED. RESP EVEN AND REGULAR. SR UP X2, CALL LIGHT WITHIN REACH AND BED ALARM ON.
--- NOTE | 2017-01-14 02:18 | NUR ---
PT AWAKE; DENIES ANY DISCOMFORT. WILL CONTINUE TO MONITOR. SR UP X2, CALL LIGHT WITHIN REACH, AND BED ALARM ON.
[2017-01-14 04:00] VITALS: BP 122/61
--- NOTE | 2017-01-14 04:23 | NUR ---
PT AWAWK; DENIES ANY DISCOMFORT. WILL CONTINUE TO MONITOR. SR UP X2, CALL LIGHT WITHIN REACH AND BED ALARM ON.
[2017-01-14 05:02] LABS: BASOPHILS 0.1 % (0-2); EOSINOPHILS 0.1 % (0-7); HEMATOCRIT 31.1 % (36.0-48.0); HEMOGLOBIN 9.8 g/dL (12-16); IMMATURE GRANULOCYTES 1.3 % (0-5); LYMPHOCYTES 8.9 % (15-50); MCH 31.8 pg (26.0-34.0); MCHC 31.5 g/dL (31.0-37.0); MEAN PLATELET VOLUME 10.3 fL (7.4-10.4); MONOCYTES 2.7 % (2-11); NEUTROPHILS 86.9 % (40-80); PLATELET COUNT 118 10x3/uL (130-400); RBC 3.08 10x6/uL (4.00-5.40); RDW 17.2 % (11.5-14.5); WBC 8.4 10x3/uL (4.8-10.8)
[2017-01-14 05:30] LABS: ALBUMIN 2.5 g/dL (3.4-5.0); BILIRUBIN - TOTAL 1.1 mg/dL (0.2-1.3); CALCIUM 8.4 mg/dL (8.5-10.1); CARBON DIOXIDE 34.4 mmol/L (21.0-32.0); CREATININE - SERUM 1.3 mg/dL (0.6-1.3); MAGNESIUM - SERUM 1.8 mg/dL (1.8-2.4); POTASSIUM - SERUM 4.4 mmol/L (3.5-5.1); PROTEIN - SERUM 5.5 g/dL (6.4-8.2)
--- NOTE | 2017-01-14 06:14 | NUR ---
VSS THROUGHOUT NIGHT. PT DENIED ANY DISCOMFORT. DULCOLAX SUPP PLACED IN RECTUM FOR C/O CONSTIPATION. NEEDS MET; WILL CONTINUE TO MONITOR.
--- NOTE | 2017-01-14 07:15 | NUR ---
RECEIVED REPORT. ASSUMED CARE OF PATIENT. LYING IN BED WITH EYES OPEN. CALL LIGHT WITHIN REACH. DENIES NEEDS AT THIS TIME. NO DISTRESS. STATES SHE SLEPT WELL LAST NIGHT. NO DISTRESS.
[2017-01-14 08:46] VITALS: BP 115/58
--- NOTE | 2017-01-14 10:22 | NUR ---
MEDICATED FOR PAIN AT THIS TIME. NO DISTRESS.
[2017-01-14 12:12] VITALS: BP 112/52
--- NOTE | 2017-01-14 13:18 | NUR ---
GAIL WITH PHYSICAL THERAPY HERE TO WORK WITH PATIENT.
--- NOTE | 2017-01-14 15:30 | NUR ---
PATIENT ASSISTED TO BSC. LARGE HARD BM AT THIS TIME. PATIENT ASSISTED BACK TO BED. CALL LIGHT WITHIN REACH. NO DISTRESS.
[2017-01-14 16:23] VITALS: BP 113/64
--- NOTE | 2017-01-14 17:41 | NUR ---
PM MEAL CONSUMED. SPECIAL ORDERED PATIENT CHOCOLATE SHAKE. 100% CONSUMED. PATIENT TALKING MORE AND STATES SHE FEELS BETTER. CALL LIGHT WITHIN REACH. NO DISTRESS.
[2017-01-14 20:00] VITALS: BP 125/63
[2017-01-15] VITALS (7 sets, daily range): BP systolic 107–133; BP diastolic 55–72
--- NOTE | 2017-01-15 00:40 | NUR ---
INITIAL ROUNDS COMPLETED AT 1920 HRS. PT DENIED ANY DISCOMFORT. ASSESSMENT COMPLETED AT 1945 HRS. VSS. O2 6L OXIMIZER. IV TO LAC WITH NS AT 30CC/HR. IV PATENT. NUMEROUS BRUISES NOTED TO BILAT ARMS AND LEGS. RAO DRAINING YELLOW URINE. PM MEDS GIVEN. PT CURRENTLY RESTING WITH EYES CLOSED. RESP EVEN AND REGULAR. SR UP X2,CALL LIGHT WITHIN REACH AND BED ALARM ON.
--- NOTE | 2017-01-15 02:20 | NUR ---
PT AWAKE; DENIES ANY DISCOMFORT. WILL CONTINUE TO MONITOR.
--- NOTE | 2017-01-15 04:27 | NUR ---
PT RESTING WITH EYES CLOSED. RESP EVEN AND REGULAR. SR UP X2, CALL LIGHT WITHIN REACH.
--- NOTE | 2017-01-15 06:06 | NUR ---
VSS THROUGHOUT NIGHT. PT DENIED ANY PAIN AND STATED IV ZOFRAN CONTROLLED NAUSEA. NEEDS MET; WILL CONTINUE TO MONITOR.
--- NOTE | 2017-01-15 07:30 | NUR ---
AM ROUNDS - PT IS AWAKE IN BED RECIEVING A BREATHING TREATMENT. IV IN LEFT AC WITH NS AT 30CC/HR. 6L O2 VIA OXIMIZER. PT IS A&O. NON SKID SOCKS ON. RAO DRAINING CLEAR YELLOW, NO DATE. PT C/O NAUSEA. WILL CHECK ON MEDS. NO FUTHER NEEDS AT THIS TIME. WILL CONTINUE TO MONITOR
--- NOTE | 2017-01-15 15:01 | NUR ---
Patient Name: ETHAN BUSH Encounter No: [id number] : 1940 Primary Insurance: MEDICARE A & B Anticipated DC Date: 01-15-2017 Planned Disposition: Inpatient Rehab External Planned Provider: [facility] DCP follow-up note: CM RECEIVED ORDER FOR INPATIENT REHAB PRESCREENING. CM MET WITH PT AND DISCUSSED ORDER WELL DISCHARGE PLANNING AND NEEDS. PT IS AGREEABLE FOR INPATIENT REHAB AT [facility]; PT REPORTS SHE IS NOT GOING TO A HALF-WAY FACILITY OR OTHER HOSPITAL FOR REHAB. PT PLANS TO DISCHARGE HOME WITH FAMILY AFTER REHAB COMPLETION. [id number] MESSAGE FROM MEDICARE PROVIDED AND EXPLAINED. CM SPOKE TO YOVANY OF [facility] WHO REPORTS THEY WILL EVALUATE PT AND START ON SCREEN TODAY. [facility] PLANS TO ACCEPT PT AT DISCHARGE. WHEN MEDICALLY STABLE FOR DISCHARGE, NOTIFY [facility]; [facility] INPAT[facility] WILL NOTIFY MED 2 NURSE WITH ROOM NUMBER WHEN READY TO ACCEPT PT AND NURSE REPORT. Dwain Shelby, CASE MANAGEMENT
--- NOTE | 2017-01-15 23:38 | NUR ---
NURSE ROUNDS 21:00 - PT AWAKE, ALERT, ORIENTED, C/O BEING CONSTIPATED. I DID ADMINISTER HER PRN DULCOLAX SUPPOSITORY WITH HER HS MEDS. PT DENIES ANY OTHER NEEDS. CONTINUE TO MONITOR CLOSELY. BED LOW, CALL LIGHT IN REACH, SIDE RAILS X 2, HOB 10 DEGREES.
--- NOTE | 2017-01-16 00:47 | NUR ---
PT ASKING FOR MORE PAIN MEDICATION R/T HER RECENT RIB FX, HOWEVER IT IS TOO EARLY. I PLACED A WARM BLANKET ON AFFECTED AREA AND ASKED PT TO NOTIFY ME IF THIS DOES NOT HELP. WE WILL ALSO TRY AN ICE PACK IF PT CHOOSES TO. CONTINUE TO MONITOR CLOSELY.
[2017-01-16 03:43] VITALS: BP 132/74
--- NOTE | 2017-01-16 04:58 | NUR ---
PT RESTING COMFORTABLY, NO NEEDS AT THIS TIME. CONTINUE TO MONITOR CLOSELY.
[2017-01-16 05:58] LABS: PROTIME 13.1 SECONDS (11.6-15.0)
[2017-01-16 06:06] LABS: ALBUMIN 2.5 g/dL (3.4-5.0); ANION GAP 7.6 mmol/L (8-16); BILIRUBIN - TOTAL 0.68 mg/dL (0.2-1.3); CALCIUM 8.8 mg/dL (8.5-10.1); CARBON DIOXIDE 35.7 mmol/L (21.0-32.0); CREATININE - SERUM 1.2 mg/dL (0.6-1.3); MAGNESIUM - SERUM 1.7 mg/dL (1.8-2.4); PHOSPHOROUS 3.5 mg/dL (2.5-4.9); POTASSIUM - SERUM 4.3 mmol/L (3.5-5.1); PROTEIN - SERUM 5.4 g/dL (6.4-8.2)
--- NOTE | 2017-01-16 07:36 | NUR ---
PT IS RESTING IN BED WITH EYES OPEN. ALERT AND ORIENTED X 3. DENIES ACUTE DISCOMFORT. PT STATED: " I FEEL A WHOLE LOT BETTER TODAY. IM SUPPOSED TO GO TO THERAPY WHEN THEY ARE READY." RAO CATH IS PATENT AND DRAINING TO A GRAVITY BAG. O2 IS ON @ 6LPM PER OXIMISER. SR'S ARE UP X 3 IN BED. CALL LIGHT AND BEDSIDE TABLE ARE WITHIN EASY REACH.
[2017-01-16 09:27] VITALS: BP 117/60
--- NOTE | 2017-01-16 09:38 | NUR ---
Late Entry- 01/15/17 @ 1400 Rehab Note- Acute Rehab Prescreen order received. The is a good IRF candiate. Can accept the patient when she is ready for discharge from the acute hospital. Thank you for this referral! Thi Cooper RN Clinical Liaison, [facility] Rehab/[facility]
--- NOTE | 2017-01-16 09:42 | NUR ---
RESP UL ON OXIMIZER. IV PATENT. CALL LIGHT IN REACH. WILL CONT. PLAN OF CARE.
[2017-01-16] MEDS ORDERED: BROVANA15 MCG/2 M INH (11:37)
[2017-01-16] MEDS ORDERED: IPRAT-ALBUT 0.5-3 ML UPD (11:37)
[2017-01-16] MEDS ORDERED: KLONOPIN0.5 MG PO (11:38)
[2017-01-16] MEDS ORDERED: LOVENOX30 MG/0.3 SC (11:38)
[2017-01-16] MEDS ORDERED: LASIX INJ40 MG/4 ML IV (11:40)
[2017-01-16] MEDS ORDERED: PROTONIX I40 MG/VIAL IV (11:41)
[2017-01-16] MEDS ORDERED: FLORAJEN3 CAPS460 MG PO (11:41)
[2017-01-16] MEDS ORDERED: PULMICORT0.5 MG/21 UPD (11:41)
[2017-01-16] MEDS ORDERED: COLACE100 MG PO (11:41)
[2017-01-16] MEDS ORDERED: SYNTHROID25 MCG PO (11:41)
[2017-01-16] MEDS ORDERED: DULCOLAX10 MG/SUPP RC (11:41)
[2017-01-16] MEDS ORDERED: MELATONIN 3 MG1 TAB PO (11:42)
--- NOTE | 2017-01-16 12:11 | NUR ---
PT IS SITTING IN A CHAIR AT BEDSIDE, FEEDING SELF LUNCH. NO ACUTE DISTRESS NOTED.
[2017-01-16 12:22] VITALS: BP 115/50
[2017-01-16] MEDS ORDERED: PREDNISONE20 MG PO (13:08)
--- NOTE | 2017-01-16 14:18 | NUR ---
PT IS RESTING IN HER ROOM AWAITING DC TO REHAB WHEN THEY ACCEPT HER. NO ACUTE DISTRESS NOTED.
[2017-01-16] MEDS ORDERED: MIRALAX17 GM PO (14:19)
--- NOTE | 2017-01-16 15:50 | NUR ---
PT DISCHARGED TO REHAB AT THIS TIME. DEPARTED UNIT VIA BED WITH STAFF. NO NEEDS VOICED. ADMITTED TO REHAB ROOM 1111A.
[2017-01-16] MEDS ORDERED: ULTRAM50 MG PO (19:51)
== END 2017-01-16 15:45 | DRG 682 ==
LOC: D.M2 20:45 → D.ICU 20:45 → D.M2 01-11 16:53
PROVIDERS: Internal Medicine Gastroenterology; Internal Medicine Nephrology; Internal Medicine Pulmonary Disease; ADMIT Family Medicine
DX: N17.9 Acute kidney failure, unspecified (principal); I21.4 Non-ST elevation (NSTEMI) myocardial infarction; J96.21 Acute and chronic respiratory failure with hypoxia; J18.9 Pneumonia, unspecified organism; G93.41 Metabolic encephalopathy; K72.00 Acute and subacute hepatic failure without coma; I13.0 Hypertensive heart and chronic kidney disease with heart failure and stage 1 through stage 4 chronic kidney disease, or unspecified chronic kidney disease; I50.22 Chronic systolic (congestive) heart failure; J44.0 Chronic obstructive pulmonary disease with (acute) lower respiratory infection; J44.1 Chronic obstructive pulmonary disease with (acute) exacerbation; N18.9 Chronic kidney disease, unspecified; E78.5 Hyperlipidemia, unspecified; I48.2 Chronic atrial fibrillation; I25.10 Atherosclerotic heart disease of native coronary artery without angina pectoris; K21.9 Gastro-esophageal reflux disease without esophagitis; D50.9 Iron deficiency anemia, unspecified; I07.1 Rheumatic tricuspid insufficiency; I27.2 Other secondary pulmonary hypertension; M81.0 Age-related osteoporosis without current pathological fracture; Z95.2 Presence of prosthetic heart valve; Z95.1 Presence of aortocoronary bypass graft

== ENCOUNTER 2017-01-16 15:50 | Inpatient (IN) | payer MEDICARE, BC ==
[~2017-01-16] VITALS: Ht 149.9 cm; Wt 61.2 kg
[~2017-01-16 15:50] MED LIST: ASPIRIN81 MG PO; BACTRIM 400-801 TAB PO; BIDIL TABLET1 TAB; BIOTIN5 MG PO; BROVANA15 MCG/2 M INH; CELEXA40 MG PO; COLACE100 MG PO; DULCOLAX10 MG/SUPP RC; ELAVIL25 MG PO; ELIQUIS2.5 MG PO; FLORAJEN3 CAPS460 MG PO; FOLIC ACID0.8 MG PO; HYDROCODON-ACE1 EAC7 PO; IPRAT-ALBUT 0.5-3 ML UPD; ISOSORBIDE DINI20 MG PO; KLONOPIN0.5 MG PO; LASIX INJ40 MG/4 ML IV; LASIX40 MG PO; LIPITOR10 MG PO; LOVENOX30 MG/0.3 SC; MELATONIN 3 MG1 TAB PO; MIRALAX17 GM PO; NORCO 7.5/325 T1 TA1 PO; PEPCID40 MG PO; POTASSIUM99 M1 PO; PREDNISONE20 MG PO; PROTONIX I40 MG/VIAL IV; PROTONIX20 MG PO; PULMICORT0.5 MG/21 UPD; SYNTHROID25 MCG PO; VITAMIN D2000 UNIT PO; ZANAFLEX2 M1 PO; ZYLOPRIM100 MG PO
--- NOTE | 2017-01-16 16:00 | NUR ---
PT ARRIVED TO UNIT VIA BED ACCOMPANIED BY HOSPITAL STAFF. PT WEARING OXIMIZER AT 6L AND HAS RAO DRAINING YELLOW URINE. PT IS A&O. PT DENIES NEEDS. AT THIS TIME.
[2017-01-16 16:42] VITALS: BP 142/67; BMI 27.3
--- NOTE | 2017-01-16 18:02 | NUR ---
PT EATING DINNER. DENIES NEEDS.
--- NOTE | 2017-01-16 19:30 | NUR ---
PATIENT IN BED, AWAKE. DENIES CURRENT NEEDS.
[2017-01-16] MEDS ORDERED: ULTRAM50 MG PO (19:51)
[2017-01-16 21:30] VITALS: BP 142/67
--- NOTE | 2017-01-16 21:30 | NUR ---
ASSESSMENT AND HS MEDS COMPLETE. EARLIER OBTAINED ORDER FOR TRAMADOL FOR PAIN. PATIENT NOW C/O PAIN LEVEL OF 4/10 IN RIGHT RIBS AND BACK. GAVE HER TRAMADOL 50MG PO. APPLIED BUTT PASTE TO SUPERFICIAL SPLIT IN SKIN ABOVE COCCYX. APPEARS TO BE DUE TO SHEARING FORCES. ENCOURAGE PATIENT TO LIE ON SIDE MUCH POSSIBLE. SAID SHE THOUGHT THIS TO BE AGOOD IDEA.
--- NOTE | 2017-01-16 22:20 | NUR ---
RESTNG QUIETLY IN BED ON LEFT SIDE, EYES CLOSED. APPEARS COMFORTABLE.
--- NOTE | 2017-01-17 | NUR ---
RESTING QUIETLY IN BED ON BACK. CONTINUES ON NASAL OXYMIZER @ 6L FLOW. NO EVIDENT DISCOMFORT.
--- NOTE | 2017-01-17 02:10 | NUR ---
RESTING QUIETLY ON HER BACK, EYES CLOSED. NO DISTRESS EVIDENT.
--- NOTE | 2017-01-17 02:55 | NUR ---
C/O PAIN LEVEL OF 5/10 IN RIGHT RIBS AND BACK. GAVE HER ULTRAM 50MG PO.
--- NOTE | 2017-01-17 04:45 | NUR ---
RESTING IN BED, RESPIRING QUIETLY.
[2017-01-17 05:22] LABS: BASOPHILS 0.1 % (0-2); EOSINOPHILS 1.7 % (0-7); HEMATOCRIT 33.3 % (36.0-48.0); HEMOGLOBIN 10.5 g/dL (12-16); IMMATURE GRANULOCYTES 1.1 % (0-5); LYMPHOCYTES 12.2 % (15-50); MCH 31.8 pg (26.0-34.0); MCHC 31.5 g/dL (31.0-37.0); MCV 100.9 fL (80.0-100.0); MEAN PLATELET VOLUME 10.9 fL (7.4-10.4); MONOCYTES 3.9 % (2-11); WBC 14.4 10x3/uL (4.8-10.8)
[2017-01-17 05:30] LABS: PLATELET COUNT 156 10x3/uL (130-400)
[2017-01-17 05:44] LABS: ANION GAP 5.7 mmol/L (8-16); CARBON DIOXIDE 37.4 mmol/L (21.0-32.0); CREATININE - SERUM 1.3 mg/dL (0.6-1.3); POTASSIUM - SERUM 4.1 mmol/L (3.5-5.1)
--- NOTE | 2017-01-17 08:00 | NUR ---
PT REQUESTED ASSIST UP INTO FOR BREAKFAST. TRANSFERRED WITH MOD ASSIST. FEEDING SELF. NO SWALLOWING PROBLEMS NOTED. RAO CATH PATENT AND DRAINING TO A GRAVITY BAG. O2 IS ON @ 6LPM PER OXIMISER. SR'S ARE UP X 3 IN BED. CALL LIGHT AND BEDSIDE TABLE ARE WITHIN EASY REACH.
--- NOTE | 2017-01-17 10:00 | NUR ---
IN BED RESTING QUIETLY.
--- NOTE | 2017-01-17 10:39 | NUR ---
PT IS RESTING IN BED AWAITING THERAPY EVALS. NO ACUTE DISTRESS NOTED.
--- NOTE | 2017-01-17 10:47 | NUR ---
PATIENT ADMITTED TO REHAB FROM ACUTE FLOOR. PATIENT DISCHARGE PLANS ARE TO RETURN HOME WITH HER SPOUSE. SHE HAS O2, NEBULIZER AND A ROLLING WALKER AT HOME. [facility] IN [place] IS HER CHOICE OF PHARMACY. DR. ZEKE MERRILL IS HER PCP. WILL CONTINUE TO FOLLOW WITH PATIENT AND WILL ASSIT WITH DISCHARGE NEEDS.
--- NOTE | 2017-01-17 11:16 | NUR ---
RAO CATH DC'D BY PN STUDENT WITH BULB INTACT. PT TOLERATED PROCEDURE NOTED.
--- NOTE | 2017-01-17 13:37 | NUR ---
PT IS RESTING IN BED WITH EYES CLOSED. ASSISTED TO THE BATHROOM PRN. FAMILY MEMBERS ARE AT BEDSIDE.
[2017-01-17 14:10] VITALS: Ht 149.9 cm; Wt 61.2 kg
--- NOTE | 2017-01-17 16:00 | NUR ---
RESTING QUIETLY IN BED.STATES NOT NAUSEA.NO EMISIS SINCE EARLIER TODAY.
--- NOTE | 2017-01-17 19:30 | NUR ---
PT. IN BED WITH HOB UP FOR COMFORT. ASSESSMENT COMPLETED. O2 AT 6L VIA OXIMIZER WITHOUT ANY S/S DISTRESS. NO VOICED NEEDS AT THIS TIME AND HER CALL LIGHT IS WITHIN REACH.
[2017-01-17 21:46] VITALS: BP 1285/58
--- NOTE | 2017-01-17 22:18 | NUR ---
PT. IN BED WITH HOB UP FOR COMFORT WITH EYES CLOSED AND RESP. EVEN. OXIMIZER VIA N/C IN PLACE AT 6L AND HER CALL LIGHT IS WITHIN REACH.
--- NOTE | 2017-01-17 23:38 | NUR ---
ANOTHER PT. CAME TO THE NURSES STATION AND REPORTED THAT THERE WAS A LADY JAE FOR HELP. UPON INVESTIGATION IT WAS THIS PT. SHE WAS LYING IN BED WITH HER HOB UP AND HER OXIMIZER WAS LYING ON THE FLOOR. REAPPLIED OXIMIZER AND OBTAINED PULSE OX AND IT WAS 95% AFTER PT. HAD HAD HER O2 ON FOR APPROX 3 MIN. PT. NAUSEATED AND HAD A SMALL AMT. OF EMESIS. PT. REQUESTED ZOFRAN AND IT WAS GIVEN S.L. WITH INSTRUCTIONS TO PT. NOT TO SWALLOW TAB BUT ALLOW TO DISOLVE UNDER HER TONGUE. PT. STATED SHE HAD BEEN NEEDING HELP BUT COULDN'T GET ANYONE. RE-INSTRUCTED PT. ON USE OF RED BUTTON CLINICAL REGISTERED NURSE LIGHT. PT. APOLIGIZED FOR NOT USING CALL LIGHT. INFORMED PT. THAT WITH HER PULLING HER O2 OFF THIS PROBABLY CAUSED HER TO BECOME FORGETFULL. PT. LEFT WITH HOB ELEVATED AND HER OXIMIZER IN PLACE PROPERLY AND HER BLUE EMESIS BAG AT SIDE. WILL CONTINUE TO MONITOR.
--- NOTE | 2017-01-18 03:11 | NUR ---
PT. IN BED WITH HOB UP FOR COMFORT, OXIMIZER VIA N/C AT 6L/MIN, AND PT. HAS REMOVED HER SCD'S. PT. HAD REPORTED AT THE BEGINNING OF THE SHIFT THAT THE SCD'S HURT HER LEGS. EYES CLOSED WITH RESP. EVEN AND HER CALL LIGHT IS WITHIN REACH.
[2017-01-18 08:00] VITALS: BP 122/59
--- NOTE | 2017-01-18 08:00 | NUR ---
SHIFT ASSMT COMPLETED.LAC SL INTACT.O2 ON AT 6L/OXYMIZER.CL IN REACH.
--- NOTE | 2017-01-18 12:00 | NUR ---
RESTING QUIETLY. AT BEDSIDE.
--- NOTE | 2017-01-18 16:00 | NUR ---
sitting up in chair
[2017-01-18 19:30] VITALS: BP 123/61
--- NOTE | 2017-01-18 20:00 | NUR ---
PT IN BED WITH HOB UP FOR COMFORT. TALKING WITH VISITOR. ALERT & ORIENTED. OXIMIZER @ 6L. SCD'S. LEFT AC SALINE LOC. JOELLE BED & CHAIR ALARM. BED IN LOWEST POSITION AND CALL LIGHT WITHIN REACH.
--- NOTE | 2017-01-18 23:15 | NUR ---
FOUND PATIENT AWAKE WHILE I WAS REMOVING PILLOW FROM BED 1114A. PATIENT DENIES NEEDS.
--- NOTE | 2017-01-19 | NUR ---
PT IN BED WITH HOB UP FOR COMFORT. EYES CLOSED. CHEST RISING AND FALLING. BED IN LOWEST POSITION AND CALL LIGHT WITHIN REACH.
--- NOTE | 2017-01-19 05:00 | NUR ---
PT IN BED WITH HOB UP FOR COMFORT. EYES CLOSED. RESPIRATIONS EVEN AND UNLABORED. BED IN LOWEST POSITION AND CALL LIGHT WIHTIN REACH.
[2017-01-19 06:39] LABS: BASOPHILS 0.1 % (0-2); EOSINOPHILS 0.4 % (0-7); HEMATOCRIT 35.9 % (36.0-48.0); HEMOGLOBIN 11.1 g/dL (12-16); LYMPHOCYTES 7.9 % (15-50); MCH 31.1 pg (26.0-34.0); MCHC 30.9 g/dL (31.0-37.0); MCV 100.6 fL (80.0-100.0); MEAN PLATELET VOLUME 9.5 fL (7.4-10.4); MONOCYTES 3.3 % (2-11); NEUTROPHILS 87.3 % (40-80); PLATELET COUNT 149 10x3/uL (130-400); RBC 3.57 10x6/uL (4.00-5.40); RDW 16.5 % (11.5-14.5); WBC 17.5 10x3/uL (4.8-10.8)
[2017-01-19 07:30] LABS: ANION GAP 10.3 mmol/L (8-16); CALCIUM 9.3 mg/dL (8.5-10.1); CARBON DIOXIDE 34.7 mmol/L (21.0-32.0); CREATININE - SERUM 1.1 mg/dL (0.6-1.3)
--- NOTE | 2017-01-19 08:00 | NUR ---
SHIFT ASSMT COMPLETED.DENIES NEEDS.UP OOB TO WC FOR BREAKFAST.
[2017-01-19 08:37] VITALS: BP 125/51
--- NOTE | 2017-01-19 12:00 | NUR ---
SITTING UP IN WC FOR LUNCH.CL IN REACH.
--- NOTE | 2017-01-19 16:00 | NUR ---
RESTING QUIETLY.CL IN REACH.
--- NOTE | 2017-01-19 19:36 | NUR ---
PT RECEIVED UP IN CHAIR AT BEDSIDE. REQUEST ASSIST TO BATHROOM. TRANSFERS WITH MIN ASSIST. NO CONCERNS OR COMPLAINTS NOTED. IN BED WATCHING TV WHEN LEAVING ROOM. CALL LIGHT IN REACH.
--- NOTE | 2017-01-19 22:52 | NUR ---
PT IN BED WITH EYES CLOSED AND CHEST RISING. NO SIGN/SYMPTOMS OF DISTRESS NOTED. CALL LIGHT IN REACH.
[2017-01-19 23:12] VITALS: BP 127/58
--- NOTE | 2017-01-20 03:05 | NUR ---
PT IN BED WITH EYES OPEN WATCHING TV. NO CONCERNS MADE KNOWN. CALL LIGHT IN REACH.
--- NOTE | 2017-01-20 05:58 | NUR ---
PT UP IN WHEELCHAIR WATCHING TV. NO CONCERNS OR COMPLAINTS MADE KNOWN AT THIS TIME. CALL LIGHT IN REACH.
--- NOTE | 2017-01-20 08:06 | NUR ---
PATIENT SITTING UP IN WHEELCHAIR AT BEDSIDE. CALL LIGHT WITHIN REACH. HIGH FLOW OXYGEN ON AT 5L. NO SOB NOTED.
--- NOTE | 2017-01-20 10:12 | NUR ---
PATIENT REFUSED SCHEDULED COLACE AND MIRALAX. PATIENT HAS HAD MULTIPLE LOOSE STOOLS.
[2017-01-20 10:25] VITALS: BP 101/58
--- NOTE | 2017-01-20 11:20 | NUR ---
PATIENT IN REHAB ROOM. WORKING WITH OCCUPATIONAL THERAPIST. DENIES ANY PAIN/DISC AT THIS TIME
--- NOTE | 2017-01-20 12:42 | NUR ---
PT UP EATING LUNCH, FAMILY AT BEDSIDE. PT DENIES NEEDS.
--- NOTE | 2017-01-20 14:05 | NUR ---
PRN ULTRAM GIVNE FOR RIGHT RIB PAIN.
--- NOTE | 2017-01-20 17:30 | NUR ---
PATIENT HELPED UP TO WHEELCHAIR FOR SUPPER. MIN TO MOD ASST FROM BED TO WHEELCHAIR. CHAIR ALARM ON. CALL LIGHT WITHIN REACH
--- NOTE | 2017-01-20 18:17 | NUR ---
IV IN LEFT AC OUT. PATIENT DOES NOT HAVE ANY MEDICATIONS, FLUIDS ORDERD IV.
--- NOTE | 2017-01-20 20:58 | NUR ---
PT RECEIVED IN BED WITH EYES OPEN WATCHING TV. COMPLAINS OF PAIN TO RIGHTSIDE RIB AND BACK. NO OTHER CONCERNS NOTED. PRN TRMADOL GIVEN. NO OTHER NEEDS NOTED. CALL LIGHT IN REACH.
[2017-01-20 22:13] VITALS: BP 111/59
--- NOTE | 2017-01-20 23:27 | NUR ---
PT IN BED WITH EYES CLOSED AND CHEST RISING. NO CONCERNS NOTED AT THIS TIME. CALL LIGHT IN REACH.
--- NOTE | 2017-01-21 03:39 | NUR ---
PT IN BED WITH EYES CLOSED AND CHEST RISING. NO SIGN/SYMPTOMS OF DISTRESS. CALL LIGHT IN REACH.
--- NOTE | 2017-01-21 05:54 | RHP ---
PATIENT: ETHAN BUSH MEDICAL RECORD: [id number] ACCOUNT: [id number] LOCATION:[facility]1114 : 40 ADMISSION DATE: 01/16/17 REHABILITATION HISTORY AND PHYSICAL EXAMINATION POST ADMISSION PHYSICIAN EXAMINATION Post-Admission Physical Examination and History and Physical DATE OF ADMISSION: 01/16/2017 ADMITTING DIAGNOSIS: Acute exacerbation of chronic obstructive pulmonary disease. HISTORY OF PRESENT ILLNESS: The patient is admitted to inpatient rehab for acute exacerbation of COPD. She is a 77-year-old female patient transferred from [place]. She was seen in the Emergency Room the week prior to this after a fall and rib pain and revealed 3rd through 8th rib fractures. She was evaluated and released. She developed altered mental status, continued to have rib pain. She was brought to the Emergency Room on January 08. She was seen there, found to have acute renal insufficiency, hypoxia, pulmonary edema, elevated troponin, possible pneumonia, elevated LFTs, cirrhosis and COPD. She was transferred to [place] for higher level of care. She had coronary artery bypass grafting in September 2016, has had pneumonia twice since then. She has required an increased amount of oxygen during her acute inpatient stay up to 7 liters via nasal cannula. At home, she is normally on 2 liters. She was independent with her ADLs and moderately independent with her mobility prior to hospitalization. She is set here to max assist with ADLs, max assist to total assist with her current mobility. She and her planned for her to return home, hopefully get back to her prior level of functioning. The only way she will be able to do that of course is to go through rehab and work with PT and OT. COMORBIDITIES: Include pleural effusion, [id number] hypoxic respiratory failure, pneumonia, renal failure, mental status changes, elevated LFTs, diastolic dysfunction, acute non-ST segment elevation myocardial infarction, acute shock, cirrhosis, gout, hyperlipidemia, osteoporosis and she has got a history of atrial fib. PAST MEDICAL HISTORY: Significant for CVA, CHF, CAD, coronary artery disease, pneumonia, O2 dependence, chronic obstructive pulmonary disease, gastroesophageal reflux disease, stomach ulcer and anxiety. PAST SURGICAL HISTORY: Includes coronary artery bypass grafting. She has had a valve replacement and she has had angioplasty and stent placement. ALLERGIES: PENICILLIN, ATIVAN AND CODEINE. CURRENT MEDICATIONS: She is on a tapering dose of prednisone. She is on MiraLax 17 grams in 8 ounces of water daily, Protonix 40 mg daily, Synthroid 25 mcg daily, Floranex 460 mg daily. She is on Lasix 40 mg daily IV, I am going to change this over to p.o. She is on folic acid 0.8 mg daily, Lovenox 30 mg subQ daily, vitamin D 3000 units daily, tramadol 50 mg q.4 hours p.r.n. pain, melatonin 3 mg at bedtime p.r.n. [facility] She is on Pepcid 40 mg b.i.d., Colace 100 mg t.i.d., Klonopin 0.25 mg b.i.d. as needed, Pulmicort 0.5 mg b.i.d., Dulcolax suppositories as needed for constipation, Brovana 15 mcg b.i.d. and polyethylene glycol 17 grams in 8 ounces of water daily. HISTORY AND PHYSICAL [id number] ETHAN BUSH HABITS: No alcohol or tobacco use. FAMILY HISTORY: Noncontributory. SOCIAL HISTORY: The patient once again hopes to return home, get back to her prior level of functioning and live with her . REVIEW OF SYSTEMS: VITAL SIGNS: Stable. She is afebrile. GENERAL: Elderly female in no acute distress, alert upon exam. HEENT: Normocephalic and atraumatic. Mucosa moist. NECK: Supple with no lymphadenopathy. LUNGS: Clear in upper porter. She does have decreased breath sounds in the bases. CARDIOVASCULAR: Regular rate and rhythm. ABDOMEN: Benign. EXTREMITIES: No clubbing, cyanosis, or edema. NEUROLOGIC: Intact. LABORATORY DATA: Her white count was 14.4, H&H of 10 and 33, and platelet count was noted to be 156. Her sodium is 139, potassium 4.1, BUN and creatinine of 45 and 1.3, and blood sugar was noted to be 85. ASSESSMENT: This is a 77-year-old female patient admitted to rehab with a working diagnosis of acute exacerbation of chronic obstructive pulmonary disease. The patient has potential to make improvement. We instituted the following multidisciplinary therapies including, but not limited to physical, occupational, respiratory, speech, nutritional services, prosthetics and orthotics. Given her complex condition and risk for more complications, rehabilitation services cannot be provided at a low level of care such as a residential facility. PLAN: 1. Admit to [facility] rehab for intensive inpatient therapy to include the following disciplines: A. Physical therapy to improve gait, all transfer skills and bed mobility to a modified independent level. B. Occupational therapy to improve activities of daily living to a modified independent level. C. Case management to assist with discharge planning and placement options. D. Nutrition to assist with nutritional needs. E. Rehabilitation nursing to assist in monitoring the patient's underlying medical conditions and to assist with any type of bowel or bladder management. 2. The patient's current medication and medical care will be continued. 3. The patient will be placed on standard fall precautions. 4. The patient's estimated length of stay is approximately 7-10 days. 5. Discuss this patient during care team staff meeting this week. TRANSINT:[id number] Voice Confirmation ID: [id number] DOCUMENT ID: [id number] ALEC notes whether there has been none or any medical/functional change since admission: - HISTORY AND PHYSICAL [id number] ETHAN BUSH attests patient continues to be appropriate for IRF: - MOLINA MELVIN MD at [id number] CC: [id number] DICTATION DATE: 01/17/17 0835 LIMOUSINE RENTAL CLERK: 01/17/17 1117 ADM IN [facility] [address] [place] [address]
--- NOTE | 2017-01-21 06:13 | NUR ---
PT UP IN WHEELCHAIR AT BEDSIDE. NO CONCERNS NOTED. CALL LIGHT IN REACH.
--- NOTE | 2017-01-21 07:43 | NUR ---
PATIENT ALERT/ORIENT X4. SITTING UP IN WHEELCHAIR AT BEDSIDE. CALL LIGHT WITHIN REACH. VOICES NO NEEDS AT THIS TIME. EATTING BREAKFAST.
[2017-01-21 08:00] VITALS: BP 109/58
--- NOTE | 2017-01-21 10:01 | NUR ---
THIS NURSE GAVE PATIENT SUPPLIES TO WASH SELF UP AT BEDSIDE. PATIENT ASKED TO GO INTO BATHROOM. THIS NURSE HELPED PATIENT GO INTO BATHROOM. PATIENT BRUSHED HER TEETH WHILE IN BATHROOM. PATIENT TURNED DERMATOLOGY NURSE PRACTITIONER LIGHT SO THIS NURSE COULD WATCH TRANSFER FROM WHEELCHAIR ONTO TOILET. PATIENT IS A STANDBY ASST. PATIENT HELPED BACK IN BED WITH STAND BY ASST. THIS NURSE HELPED PATIENT ADJUST OXYGEN. AND APPLIED SCDS BILATERAL LEGS. PATIENT HAS CALL LIGHT WITHIN REACH. JOELLE ALARM ON.
--- NOTE | 2017-01-21 11:40 | NUR ---
PATIENTS FAMILY IN ROOM VISITING. PATIENT HAS SLIGHT CONFUSION. BEING AUGUMENTIVE WITH FAMILY.
--- NOTE | 2017-01-21 14:17 | NUR ---
PATIENTS DAUGHTER COME UP TO NURSING STATION AND STATED THAT SHE FELT HER MOTHER WAS RUNNING A TEMPATURE. THIS NURSE TOOK PATIENTS TEMP 97.8. PATIENT STATED THAT SHE WAS VERY TIRED TODAY. STATES SHE FELT NAUSEATED. PRN ZOFRAN GIVEN. FAMILY AND VISITORS HAVE BEEN IN ROOM ALL DAY. PATIENT HAS NOT BEEN ABLE TO REST.
--- NOTE | 2017-01-21 19:42 | NUR ---
PT RECEIVED IN BED WITH EYES CLOSED AND CHEST RISING. EASILY AROUSED TO VERBAL STIMULI. NO SIGN/SYMPTOMS OR DISTRESS NOTED. CALL LIGHT IN REACH.
[2017-01-21 20:15] VITALS: BP 124/64
--- NOTE | 2017-01-22 00:17 | NUR ---
PT IN BED WITH EYES CLOSED AND CHEST RISING. NO SIGN/SYMPTOMS OF DISTRESS NOTED. CALL LIGHT IN REACH.
--- NOTE | 2017-01-22 03:03 | NUR ---
PT IN BED WITH EYES CLOSED AND CHEST RISING. NO CONCERNS NOTED AT THIS TIME. CALL LIGHT IN REACH.
[2017-01-22 06:48] LABS: BASOPHILS 0 % (0-2); EOSINOPHILS 0.1 % (0-7); HEMOGLOBIN 10.3 g/dL (12-16); IMMATURE GRANULOCYTES 0.7 % (0-5); LYMPHOCYTES 14.4 % (15-50); MCH 31.5 pg (26.0-34.0); MCHC 31.2 g/dL (31.0-37.0); MCV 100.9 fL (80.0-100.0); MEAN PLATELET VOLUME 9.9 fL (7.4-10.4); MONOCYTES 3.9 % (2-11); NEUTROPHILS 80.9 % (40-80); PLATELET COUNT 148 10x3/uL (130-400); RBC 3.27 10x6/uL (4.00-5.40); RDW 16.8 % (11.5-14.5); WBC 15.3 10x3/uL (4.8-10.8)
[2017-01-22 06:59] LABS: ANION GAP 7.9 mmol/L (8-16); CALCIUM 8.8 mg/dL (8.5-10.1); CARBON DIOXIDE 35.8 mmol/L (21.0-32.0); CREATININE - SERUM 1.2 mg/dL (0.6-1.3); POTASSIUM - SERUM 3.7 mmol/L (3.5-5.1)
--- NOTE | 2017-01-22 07:30 | NUR ---
Pt lying in bed eyes open alert and oriented x2 pleasant affect
--- NOTE | 2017-01-22 07:54 | NUR ---
SITTING UP EATING BREAKFAST. CALL LIGHT IN REACH
[2017-01-22 08:00] VITALS: BP 102/52
--- NOTE | 2017-01-22 09:35 | NUR ---
Pt sitting up in wheelchair alarm on visiting with family
--- NOTE | 2017-01-22 11:54 | NUR ---
pt in therapy
--- NOTE | 2017-01-22 14:00 | NUR ---
PT LYING IN BED EYES CLOSED RESTING
--- NOTE | 2017-01-22 15:31 | NUR ---
NUTRITION MONITORING & EVAL CHART REVIEWED, PT VISIT. PT REPORTS SOME NAUSEA. EATING ~ 50% OF RECENT MEALS. RD FOLLOWING
--- NOTE | 2017-01-22 16:35 | NUR ---
PT SITTING UP IN WHEELCHAIR EATING ICECREAM
--- NOTE | 2017-01-22 18:15 | NUR ---
PT SITTING UP IN WHEELCHAIR WATCHING TV QUIETLY
[2017-01-22 19:30] VITALS: BP 119/65
--- NOTE | 2017-01-22 19:40 | NUR ---
RESPIRATIONS REGULAR AND UNLABORED, PT DENIES ANY NEEDS. PT IS ABLE TO PROPEL SELF IN W/C.
--- NOTE | 2017-01-22 19:55 | NUR ---
ASSISTED PT TO BATHROOM AND BACK TO BED.
--- NOTE | 2017-01-23 | NUR ---
PT LYING IN BED. EYES CLOSED. CHEST RISING AND FALLING. BED IN LOWEST POSITION AND CALL LIGHT WITHIN REACH.
--- NOTE | 2017-01-23 04:00 | NUR ---
PT IN BED WITH HOB UP FOR COMFORT. EYES CLOSED. RESPIRATIONS EVEN AND UNLABORED. BED IN LOWEST POSITION AND CALL LIGHT WITHIN REACH.
--- NOTE | 2017-01-23 08:00 | NUR ---
SHIFT ASSMT COMPLETED.DENIES NEEDS,SLIGHTLY CONFUSED WITH TIME.CL IN REACH.
[2017-01-23 09:10] VITALS: BP 109/49
--- NOTE | 2017-01-23 12:00 | NUR ---
SITTING UP IN WC EATING LUNCH.FAMILY AT BEDSIDE.
--- NOTE | 2017-01-23 12:55 | NUR ---
CARE TEAM MEETING: PATIENT SPOUSE AND DAUGHTER ATTENDED MEETING. CONCERNS VOICED AND QUESTIONS ANSWERED. TENATIVE DISCHARGE DATE IS 01/30/17. CHEST XRAY WILL BE DONE TODAY. WILL CONTINUE TO FOLLOW WITH PATIENT
[2017-01-23 19:05] VITALS: BP 107/47
--- NOTE | 2017-01-23 19:31 | NUR ---
PT IS RESTING IN A WC IN HER ROOM VISITING A FAMILY MEMBER. ALERT AND ORIENTED X3. PT DENIES ANY PAIN OR DISCOMFORT AT THIS TIME. VSS. O2 IS ON @ 4LPM PER NC. NO SOB NOTED. CALL LIGHT AND BEDSIDE TABLE ARE WITHIN EASY REACH.
--- NOTE | 2017-01-23 22:09 | NUR ---
PT IS RESTING IN BED WITH EYES OPEN. NO NEEDS VOICED.
--- NOTE | 2017-01-23 23:11 | NUR ---
PT. IN BED WITH HOB UP FOR COMFORT. EYES CLOSED, RESP. EVEN. PT. LYING ON HER LEFT SIDE. O2 AT 4L/MIN VIA N/C WITHOUT ANY S/S DISTRESS. CALL LIGHT WITHIN REACH.
--- NOTE | 2017-01-23 23:26 | NUR ---
RESTING IN BED WITH EYES CLOSED.
--- NOTE | 2017-01-24 02:07 | NUR ---
RESTING IN BED WITH EYES CLOSED.
--- NOTE | 2017-01-24 05:56 | NUR ---
PT RESTING IN BED WITH EYES CLOSED. AWOKE EASILY TO VERBAL STIMULI. TOLERATED AM MEDS WITHOUT DIFFICULTY. PT DRESSED IN SCRUB SHIRT. PANTS LEFT OFF PER HER REQUEST.
[2017-01-24 06:39] LABS: BASOPHILS 0 % (0-2); EOSINOPHILS 0.6 % (0-7); HEMATOCRIT 32.2 % (36.0-48.0); IMMATURE GRANULOCYTES 0.4 % (0-5); LYMPHOCYTES 15.7 % (15-50); MCH 31.4 pg (26.0-34.0); MCHC 31.1 g/dL (31.0-37.0); MCV 101.3 fL (80.0-100.0); MEAN PLATELET VOLUME 10.3 fL (7.4-10.4); MONOCYTES 2.9 % (2-11); NEUTROPHILS 80.4 % (40-80); PLATELET COUNT 157 10x3/uL (130-400); RBC 3.18 10x6/uL (4.00-5.40); WBC 11.6 10x3/uL (4.8-10.8)
[2017-01-24 06:54] LABS: ANION GAP 12.4 mmol/L (8-16); CALCIUM 8.5 mg/dL (8.5-10.1); CARBON DIOXIDE 31.3 mmol/L (21.0-32.0); CREATININE - SERUM 1.3 mg/dL (0.6-1.3); POTASSIUM - SERUM 3.7 mmol/L (3.5-5.1)
--- NOTE | 2017-01-24 08:00 | NUR ---
SHIFT ASSMT COMPLETED,O2 ON.SOB WITH ACTIVITY.BREAKFAST GIVEN.
[2017-01-24 09:05] VITALS: BP 105/49
--- NOTE | 2017-01-24 12:00 | NUR ---
UP IN CHAIR,EATING LUNCH,FAMILY AT BEDSIDE.
--- NOTE | 2017-01-24 19:59 | NUR ---
PT RECEIVED UP IN WHEELCHAIR VISITING WITH FAMILY. PT REQUEST ASSIST WITH TRANSFER TO BED STAND BY ASSIST NEEDED. NO OTHER NEEDS OR CONCERNS MADE KNOWN. CALL LIGHT IN REACH. FAMILY HAS LEFT FACILITY. WILL CONTINUE TO OBSERVE.
[2017-01-24 20:15] VITALS: BP 101/51
--- NOTE | 2017-01-25 01:12 | NUR ---
PT IN BED WITH EYES OPEN. NO COMPLAINTS EXCEPT BEING UNABLE TO SLEEP WITH PRN MELATONIN GIVEN PER OCT. CALL LIGHT IN REACH.
--- NOTE | 2017-01-25 06:38 | NUR ---
PT IN BED WITH EYES CLOSED AND CHEST RISING. NO SIGN/SYMPTOMS OF DISTRESS NOTED. CALL LIGHT IN REACH.
--- NOTE | 2017-01-25 07:30 | NUR ---
PT LYING IN BED RESTING, A & O x3 denies any pain
[2017-01-25 08:22] VITALS: BP 114/52
--- NOTE | 2017-01-25 09:30 | NUR ---
Pt sitting up in wheelchair watching tv call light in reach
--- NOTE | 2017-01-25 11:35 | NUR ---
PT SITTING UP IN WHEELCHAIR VISITING WITH FAMILY, STATES PAIN IS A 3/10 RT RIB CAGE ACHING
--- NOTE | 2017-01-25 13:40 | NUR ---
PT LYING IN BED RESTING QUIETLY FAMILY AT BEDSIDE
--- NOTE | 2017-01-25 15:30 | NUR ---
PT IN THERAPY
--- NOTE | 2017-01-25 17:15 | NUR ---
PT LYING IN BED HOB 15 DEGREES EYES CLOSED RESTING QUIETLY
[2017-01-25 19:00] VITALS: BP 107/48
--- NOTE | 2017-01-25 19:30 | NUR ---
CHILDREN COME TO VISIT.
--- NOTE | 2017-01-26 01:20 | NUR ---
RESTING QUIETLY IN BED, EYES CLOSED.
--- NOTE | 2017-01-26 02:00 | NUR ---
PT REST QUIETLY IN BED WITH EYE CLOSE, BED LOW, CALL LIGHT WITHIN REACH.
--- NOTE | 2017-01-26 07:04 | NUR ---
RESTING QUIETLY IN BED. EYES CLOSED. CALL LIGHT IN REACH
[2017-01-26 07:15] VITALS: BP 102/49
--- NOTE | 2017-01-26 07:30 | NUR ---
PT LYING IN BED EYES OPEN. ALERT AND ORIENTED X3 PLEASANT AFFECT. C/O PAIN RIGHT RIB CAGE AREA 410
--- NOTE | 2017-01-26 09:30 | NUR ---
PT IN THERAPY
--- NOTE | 2017-01-26 11:35 | NUR ---
PT UP IN W/C WATCHING TV QUIETLY
--- NOTE | 2017-01-26 13:43 | NUR ---
PT LYING IN BED EYES OPEN VISITING QUIETLY WITH FAMILY
--- NOTE | 2017-01-26 15:51 | NUR ---
PT IN PHYS THERAPY. NO CONCERNS AT THIS TIME. W/C ALARM ON
--- NOTE | 2017-01-26 17:33 | NUR ---
PT LYING IN BED EYES CLOSED RESTING QUIETLY. CALL LIGHT IN REACH
--- NOTE | 2017-01-26 19:15 | NUR ---
PT IN BED WITH HOB UP FOR COMFORT. WATCHING TV. 02 @ 4L VIA N/C. CONTINENT. MIN. ASSIST. SCD'S. NO IV. JOELLE ALARM. BED IN LOWEST POSITION AND CALL LIGHT WITHIN REACH.
[2017-01-26 20:16] VITALS: BP 115/55
--- NOTE | 2017-01-26 23:15 | NUR ---
PT IN BED WITH HOB UP FOR COMFORT. RESTING QUIETLY. RESPIRATIONS EVEN AND UNLABORED. BED IN LOWEST POSITION AND CALL LIGHT WITHIN REACH.
--- NOTE | 2017-01-27 03:15 | NUR ---
PT LYING IN BED. EYES CLOSED. CHEST RISING AND FALLING. BED IN LOWEST POSITION AND CALL LIGHT WITHIN REACH.
--- NOTE | 2017-01-27 03:55 | NUR ---
IN BED, EYES CLOSED. NO DISTRESS NOTED.
--- NOTE | 2017-01-27 05:48 | NUR ---
PT LYING IN BED. EYES CLOSED. RESPIRATIONS EVEN AND UNLABORED. BED IN LOWEST POSITION AND CALL LIGHT WITHIN REACH.
--- NOTE | 2017-01-27 07:30 | NUR ---
PT RESTING IN BED WITH EYES CLOSED. AWOKE EASILY TO VERBAL STIMULI. ALERT AND ORIENTED X 3. DENIES ACUTE DISCOMFORT. PT ASSISTED TO THE BATHROOM WITH SBA FOR ALL TASKS. O2 IS ON @4LPM PER NC. NO SOB NOTED. SR'S ARE UP X 3 IN BED. CALL LIGHT AND BEDSIDE TABLE ARE WITHIN EASY REACH.
--- NOTE | 2017-01-27 07:58 | NUR ---
SITTING UP IN BED.CL IN REACH.
--- NOTE | 2017-01-27 09:04 | NUR ---
PT IS RESTING QUIETLY IN BED WITH EYES OPEN. NO NEEDS VOICED.
[2017-01-27 09:24] VITALS: BP 105/62
--- NOTE | 2017-01-27 11:59 | NUR ---
PT IS RESTING IN HER ROOM FEEDING SELF LUNCH. NO ACUTE DISTRESS NOTED.
--- NOTE | 2017-01-27 14:37 | NUR ---
PT IS RESTING IN BED WITH EYES CLOSED. RESPS ARE EVEN AND UNLABORED. NO ACUTE DISTRESS NOTED.
--- NOTE | 2017-01-27 16:36 | NUR ---
PT RESTING IN BED WITH EYES CLOSED. AWOKE FOR MEDS. ASSISTED TO THE BATHROOM WITH SBA.
--- NOTE | 2017-01-27 19:40 | NUR ---
PT. IN W/C AND HAS BEEN VISITING WITH FAMILY MEMBERS. RETAINING ROOM CUTTER ASSISTED PT. TO BR TO URINATE AND BACK TO BED PER PT. REQUEST SHE IS TIRED. ASSESSMENT COMPLETED. PT. REQUESTING SLEEP AIDE KATHIE. CALL LIGHT WITHIN REACH.
[2017-01-27 20:06] VITALS: BP 147/78
--- NOTE | 2017-01-27 23:21 | NUR ---
PT. IN BED LYING ON HER RIGHT SIDE WITH EYES CLOSED AND RESP. EVEN. O2 ON AT 4L/MIN VIA N/C AND NO S/S DISTRESS OBSERVED. CALL LIGHT WITHIN REACH.
--- NOTE | 2017-01-28 03:07 | NUR ---
PT. IN BED WITH HOB UP FOR COMFORT LYING ON HER RIGHT SIDE. EYES CLOSED AND RESP. EVEN. CALL LIGHT WITHIN REACH.
--- NOTE | 2017-01-28 05:20 | NUR ---
ASSISTED PT. TO AND FROM BR TO URINATE AND ONCE PT. RETURNED TO BED SHE C/O NAUSEA AND VOMITED APPROX. 10CC CLEAR YELLOW STOMACH CONTENTS. COOL WET WASH CLOTH GIVEN FOR COMFORT. ZOFRAN GIVEN FOR N/V. PT. POSITIONED TO COMFORT. ALSO PT. HAS SOME BLOODY TISSUE FROM HER NOSE THAT SHE SAID SHE BLEW INTO TISSUE AFTER BEING SICK TO HER STOMACH. CALL LIGHT WITHIN REACH UPON LEAVING ROOM.
--- NOTE | 2017-01-28 07:30 | NUR ---
PT IS RESTING QUIETLY IN BED WITH EYES OPEN. ALERT AND ORIENTED X 3. DENIES ANY PAIN OR DISCOMFORT AT THIS TIME. O2 IS ON @ 4 LPM PER NC. NO SOB NOTED. SR'S ARE UP X 3 IN BED. CALL LIGHT AND BEDSIDE TABLE ARE WITHIN REACH.
[2017-01-28 07:50] VITALS: BP 132/79
--- NOTE | 2017-01-28 09:36 | NUR ---
RESTING QUIETLY.CL IN REACH. VISITING.
--- NOTE | 2017-01-28 10:01 | NUR ---
PT IS GETTING DRESSED WITH ASSIST FROM HER DAUGHTER. SHE IS GOING TO GO OUT ON THE DECK AND GET SOME FRESH AIR.
--- NOTE | 2017-01-28 10:15 | NUR ---
PT SITTING UP IN WHEELCHAIR, NO S/S OF ACUTE DISTRESS. RESPIRATIONS REGULAR AND UNLABORED.
--- NOTE | 2017-01-28 11:00 | NUR ---
PT IS OUT ON THE DECK WITH HER AND DAUGHTER. NO ACUTE DISTRESS NOTED.
--- NOTE | 2017-01-28 13:21 | NUR ---
PT VOICED COMPLAINT OF BACK PAIN LEVEL OF 6. MEDICATED PER MAR.
--- NOTE | 2017-01-28 17:49 | NUR ---
PT IS RESTING IN BED FEEDING HERSELF SUPPER. NO ACUTE DISTRESS NOTED.
--- NOTE | 2017-01-28 21:50 | NUR ---
DAUGHTER CALL AND ASK HOW IS PT DOING? RESPOND: PT IS DOING GOOD. AND READY GO TO SLEEP.
[2017-01-29 01:19] VITALS: BP 150/64
--- NOTE | 2017-01-29 02:21 | NUR ---
REST QUIELY IN BED,EYE CLOSE, BED LOW, CALL LIGHT WITHIN REACH.
--- NOTE | 2017-01-29 07:13 | NUR ---
RESTING QUIETLY IN BED CALL LIGHT IN REACH
--- NOTE | 2017-01-29 07:40 | NUR ---
PT LYING IN BED EYES CLOSED, RESTING QUIETLY. EASILY AROUSED TO VERBAL STIMULI. PLEASANT AFFECT. ASSISTED TO WHEELCHAIR FOR BREAKFAST. CALL LIGHT IN REACH
[2017-01-29 08:00] VITALS: BP 108/63
--- NOTE | 2017-01-29 09:30 | NUR ---
PT IN THERAPY
--- NOTE | 2017-01-29 11:40 | NUR ---
PT IN WHEELCHAIR VISITING WITH FAMILY. NO CONCERNS AT THIS TIME. CALL LIGHT IN REACH.
--- NOTE | 2017-01-29 13:45 | NUR ---
PT LYING IN BED RESTING QUIETLY. FAMILY AT BEDSIDE. CALL LIGHT IN REACH.
--- NOTE | 2017-01-29 15:45 | NUR ---
ASSISTED PT TO RESTROOM AND BACK TO WHEELCHAIR. NO CONCERNS VOICED AT THIS TIME. CALL LIGHT IN REACH.
--- NOTE | 2017-01-29 18:04 | NUR ---
PT IN WHEELCHAIR EATING DINNER. CALL LIGHT IN REACH.
[2017-01-29 19:00] VITALS: BP 124/67
--- NOTE | 2017-01-29 21:30 | NUR ---
PT RESTING QUIETLY WITH TV OFF AND LIGHTS OUT. PT DENIES ANY NEEDS.
--- NOTE | 2017-01-30 02:30 | NUR ---
ASSISTED PT TO BATHROOM, DURING VISUAL CHECK OF PATIENT, PT EYES OPEN, NO NASAL CANULA, PT STATED SHE NEEDED TO GO TO BATHROOM. ASSISTED PT PER WALKER TO BATHROOM, PT VOIDED WITHOUT DIFFICULTY. NO S/S OF ACUTE DISTRESS. PT STATES SHE IS READY TO GO HOME.
--- NOTE | 2017-01-30 04:55 | NUR ---
PT RESTING QUIETLY, NO S/S OF ACUTE DISTRESS. RESPIRATIONS REGULAR AND UNLABORED, OXYGEN PER NC.
--- NOTE | 2017-01-30 07:15 | NUR ---
LYING IN BED EYES CLOSED RESTING QUIETLY. EASILY AROUSED WITH STIMULI. NO CONCERNS VOICED. CALL LIGHT IN REACH.
[2017-01-30 07:30] VITALS: BP 129/66
--- NOTE | 2017-01-30 09:30 | NUR ---
SITTING UP IN WHEELCHAIR VISITING WITH FAMILY. PT STATES "SHE IS ANXIOUS TO GET HOME". ADVISED PT AND FAMILY SOON I GET D/C ORDERS I WILL GET THEM TAKEN CARE OF. PT/FAMILY VERBALIZED UNDERSTANDING. CALL LIGHT IN REACH
[2017-01-30] MEDS ORDERED: PROTONIX40 MG PO (10:31)
--- NOTE | 2017-01-30 10:42 | NUR ---
PATIENT DISCHARGING HOME WITH FAMILY. [facility] WILL FOLLOW WITH PATIENT. PATIENT HAS ALL DME NEEDED AT HOME. DR. ZEKE MERRILL 02/07/17 @ 10:00, DR. KOEHLER 03/26/17 @ 2:30. PATIENT CHOICE FORM FOR HOME HEALTH AND [facility] FORM SIGNED, EXPLAINED AND FILED IN CHART.
--- NOTE | 2017-01-30 11:30 | NUR ---
SITTING UP IN WHEELCHAIR VISITING WITH FAMILY. NO CONCERNS VOICED AT THIS TIME. PACKED AND READY TO GO HOME. CALL LIGHT IN REACH.
--- NOTE | 2017-01-30 12:20 | NUR ---
INFORMED PT AND FAMILY OF D/C INSTRUCTIONS AND MEDICATIONS. CALLED IN SYNTHROID TO [facility] IN [place] [phone] PER FAMILY REQUEST. NO CONCERNS VOICED AT THIS TIME.
--- NOTE | 2017-01-30 13:00 | NUR ---
PT DISCHARGED ACCOMPANIED BY SON AND SPOUSE TO PERSONAL VEHICLE VIA WHEELCHAIR. PERSONAL BELONGINGS WERE GIVEN TO SON. PT HAD PERSONAL O2 TANK AND WAS PUT ON 2L VIA NC.
== END 2017-01-30 14:29 | disposition home health service (06) | DRG 190 ==
LOC: D.REHAB 15:50
PROVIDERS: ADMIT Emergency Medicine
DX: J44.1 Chronic obstructive pulmonary disease with (acute) exacerbation (principal); J96.21 Acute and chronic respiratory failure with hypoxia; J18.9 Pneumonia, unspecified organism; I21.4 Non-ST elevation (NSTEMI) myocardial infarction; J90 Pleural effusion, not elsewhere classified; I50.30 Unspecified diastolic (congestive) heart failure; R57.9 Shock, unspecified; N17.9 Acute kidney failure, unspecified; R41.82 Altered mental status, unspecified; R79.89 Other specified abnormal findings of blood chemistry; Z95.1 Presence of aortocoronary bypass graft; K74.60 Unspecified cirrhosis of liver; M10.9 Gout, unspecified; E78.5 Hyperlipidemia, unspecified; M81.0 Age-related osteoporosis without current pathological fracture

== ENCOUNTER → 2017-04-03 12:18 | Outpatient (CLI) | payer MEDICARE, BC ==
[2017-01-17 14:10] VITALS: BMI 27.2
[~2017-04-03 12:18] MED LIST changes: +PROTONIX40 MG PO; +ULTRAM50 MG PO
== END | disposition home or self-care (01) ==
LOC: D.RT 12:18
DX: J84.9 Interstitial pulmonary disease, unspecified (principal)